=== PATIENT | female | born 1985 | race Hispanic/Latino ===

== ENCOUNTER → 2017-12-07 15:04 | Outpatient (CLI) | payer OTHER, MEDICAID, SELFPAY ==
[2017-12-07 17:22] LABS: Hematocrit 30.4 % (37-47); Hemoglobin 9.6 g/dl (12.0-15.0); Mean Corp Hgb Conc 31.6 g/gl (32-36); Mean Corpuscular Hgb 26.5 pg (27.0-32.0); Mean Platelet Vol. 10.4 fl (6.2-12.0); Platelet Count 325 K/mm3 (150-450); RBC Distribution Width CV 15.1 % (11.6-14.6); RBC Distribution Width SD 46.8 fl (35.1-43.9); Red Blood Count 3.62 M/mm3 (4.2-5.4); White Blood Count 10.7 K/mm3 (4.4-11.0)
[2017-12-07 17:23] LABS: Scan Indicated on CBC? Y/N NO
[2017-12-07 17:27] LABS: Glucose Challenge Gest 1H 50g 130 mg/dL (70-140)
== END ==
PROVIDERS: Visit Provider Obstetrics & Gynecology
DX: Z34.80 Encounter for supervision of other normal pregnancy, unspecified trimester (principal)
CPT/HCPCS: 36415; 82950; 85027

== ENCOUNTER 2017-12-17 15:20 | Emergency (ER) | payer OTHER, MEDICAID, SELFPAY ==
[2017-12-17 15:22] VITALS: BP 129/82; PULSE 94; RESP 18; TEMP 37.2; O2SAT 99; BMI 49.1
--- NOTE | 2017-12-17 16:13 | US_ITS ---
STUDY: SECOND AND THIRD TRIMESTER OBSTETRICAL ULTRASOUND - LIMITED REASON FOR EXAM: Female, 32 years old. Bleeding. . PRIOR ULTRASOUND: None. TECHNIQUE: Transabdominal ultrasound evaluation was performed. FINDINGS: There is a single intrauterine fetus. The fetus is in a transverse lie with the head on the maternal right side. There is demonstrated cardiac activity with a heart rate of 139 bpm. There is a normal amniotic fluid volume. The largest amniotic fluid pocket measures 4.9 x 2.8 cm. The placenta is anterior. There is no evidence of placental abruption. The cervix measures 3.3 cm in length. BIOMETRY: BPD: 6.0 cm: 24 weeks, 4 days HC: 24.1 cm: 26 weeks, 2 days AC: 21.3 cm: 25 weeks, 6 days FL: 4.8 cm: 26 weeks, 1 days age by current US: 25 weeks, 5 days. BRIDGER by current US: 03/27/2018. US/OB Limited With Biometrics IMPRESSION: Single live intrauterine gestation as described above. No acute pathology. Electronically Signed: Kenneth Evangelista, at 16:58 EDT Tel , Service support ,
--- NOTE | 2017-12-17 17:19 | ED.DCSUM_ITS ---
- ER Visit Summary Date of Service: 12/17/17 Chief Complaint: [Abdominal pain/injury] History of Present Illness: The patient is a 32 F [presents the emergency department after injuring her right lower abdomen. Patient states that she was at work when she was pulling and pushing a skid that had a large amount of cardboard on it. At one point patient felt a sudden onset of sharp pain to the right lower quadrant while she was pulling. Now she just complains of soreness to the right lower abdomen. Patient also states that she is 25 weeks and noticed small amount of vaginal spotting that she describes as minimal since the injury. Still feeling the baby move. Patient denies urinary symptoms. She denies recent illness. She denies any fever or vomiting.] Physical Examination: [HEENT-PERRLA, EOMI. Cranial nerves II through XII grossly intact. TMs clear. Mucous membranes moist. No adenopathy. Cardiovascular-regular rate and rhythm without murmur or ectopy Lungs-clear to auscultation, chest wall stable without crepitus or subcu emphysema Abdomen-normoactive bowel sounds, soft. Patient has tenderness to the right lower quadrant musculature. No significant tenderness over the uterus which measures about 5 cm above the umbilicus. There is no rebound, rigidity, or perineal signs. No masses palpated. No hernias. Extremities-intact ?4, normal range of motion, normal pulses, atraumatic] Test Results: [Pelvic ultrasound obtained was normal] Emergency Department Course and Treatment: [Patient case was discussed with Dr. Cass López who felt that his lungs her ultrasound looked normal patient to be discharged to home with instructions to take Tylenol.] Treatment Plan: [Patient will be discharged to home and advised use acetaminophen for discomfort. I suspect patient likely has an abdominal wall strain. Patient was given work restrictions.] Disposition: [Discharged home in stable condition.] Impression: [Abdominal wall strain] This note was generated with [employer]ven[employer] dictation software. It may contain incorrect words, spelling, and punctuation that were not noted in review of the chart prior to signing ED Disposition - Plan for ED Patient: Chief Complaint: Other, Pain/Inj Referrals: Jose Manuel Briseno DO [Primary Care Provider] -
--- NOTE | 2017-12-17 17:20 | ED.DEP ---
ED Disposition - Plan for ED Patient: Chief Complaint: Other, Pain/Inj Instructions: ED Strain Abdominal Muscle Referrals: Jose Manuel Briseno DO [Primary Care Provider] - [facility] [GROUP OF PHYSICIANS] - 3-5 Days
[2017-12-17 17:53] VITALS: PULSE 78; RESP 16; O2SAT 98
== END 2017-12-17 17:53 | disposition home or self-care (01) ==
PROVIDERS: Emergency Provider Emergency Medicine; Family Provider Family Medicine; PCP Family Medicine
DX: O9A.212 Injury, poisoning and certain other consequences of external causes complicating pregnancy, second trimester (principal); S39.011A Strain of muscle, fascia and tendon of abdomen, initial encounter; X50.9XXA Other and unspecified overexertion or strenuous movements or postures, initial encounter; Y93.9 Activity, unspecified; Y92.9 Unspecified place or not applicable; O26.852 Spotting complicating pregnancy, second trimester; Z3A.25 25 weeks gestation of pregnancy
CPT/HCPCS: 76816; 99282; A4216

== ENCOUNTER → 2018-01-03 13:14 | Outpatient (CLI) | payer OTHER, MEDICAID, SELFPAY | PROVIDERS: Family Provider Family Medicine; PCP Family Medicine; Visit Provider Physician Assistant | DX: J02.9 Acute pharyngitis, unspecified (principal) | CPT/HCPCS: 87077; 87081 ==

== ENCOUNTER → 2018-02-12 14:08 | Outpatient (CLI) | payer OTHER, MEDICAID, SELFPAY ==
[2018-02-12 14:37] LABS: ROM Internal Control Test YES-OK TO RESULT pt. (Internal QC)
[2018-02-12 14:38] LABS: ROM Patient Test POSITIVE (Negative)
== END ==
PROVIDERS: Visit Provider Obstetrics & Gynecology
DX: Z34.83 Encounter for supervision of other normal pregnancy, third trimester (principal); N39.0 Urinary tract infection, site not specified
CPT/HCPCS: 84112; 87086; 87088

== ENCOUNTER 2018-02-12 16:15 | Inpatient (IN) | payer OTHER, MEDICAID, SELFPAY ==
[2018-02-12 17:03] VITALS: BMI 52.9
--- NOTE | 2018-02-12 17:04 | US_ITS ---
STUDY: SECOND AND THIRD TRIMESTER OBSTETRICAL ULTRASOUND - LIMITED REASON FOR EXAM: Female, 32 years old. growth and amniotic fluid index premature rupture of membranes LMP: PRIOR ULTRASOUND: None. TECHNIQUE: Transabdominal ultrasound evaluation was performed. FINDINGS: There is a single intrauterine fetus. The fetus is in a cephalic presentation. There is demonstrated cardiac activity with a heart rate of 143 bpm. There is a normal amniotic fluid volume. The largest amniotic fluid pocket measures 7 cm. The amniotic fluid index (PAYAM) is 16.11 cm. The placenta is anterior and fundal There are Grade 2 placental changes. The cervix measures 3.1 cm in length. BIOMETRY: BPD: 8.4 cm: 33 weeks, 6 days HC: 30.57 cm: 34 weeks, 1 days AC: 31.26 cm: 35 weeks, 2 days FL: 5.7 cm: 30 weeks, 0 days Age by LMP: weeks, days. BRIDGER by LMP: . age by prior US: weeks, days. BRIDGER by prior US: . age by current US: 33 weeks, 3 days. BRIDGER by current US: March 30, 2018. Estimated weight: 2211 grams, +/- 323 grams, 48 percentile. US/OB Limited With Biometrics IMPRESSION: Viable intrauterine gestation approximately 33-34 weeks gestational age. weight 2211 g in 48 percentile. Normal amniotic fluid index 16.11 Electronically Signed: Josue Elizabeth MD at 18:13 EDT , Service support ,
[2018-02-12 17:34] LABS: Hematocrit 28.2 % (37-47); Hemoglobin 8.5 g/dl (12.0-15.0); Mean Corp Hgb Conc 30.1 g/gl (32-36); Mean Corpuscular Hgb 23.7 pg (27.0-32.0); Mean Corpuscular Volume 78.6 fL (81-99); Mean Platelet Vol. 10.4 fl (6.2-12.0); Platelet Count 313 K/mm3 (150-450); RBC Distribution Width CV 15.3 % (11.6-14.6); Red Blood Count 3.59 M/mm3 (4.2-5.4)
[2018-02-12 17:43] LABS: Scan Indicated on CBC? Y/N NO
[2018-02-12] MEDS: Betamethasone/Betamethasone 30 MG/5 ML Vial 12 MG IM (18:15)
[2018-02-12] MEDS: Azithromycin 250 MG Tablet 500 MG PO (19:26)
[2018-02-12] MEDS: Acetaminophen 500 MG Tablet PO (20:41)
[2018-02-12] MEDS: Docusate Sodium 100 MG Capsule PO (22:10)
[2018-02-12] MEDS: Zolpidem Tartrate 5 MG Tablet PO (22:38)
[2018-02-13] MEDS: Acetaminophen 500 MG Tablet PO (05:15)
[2018-02-13] MEDS: Betamethasone/Betamethasone 30 MG/5 ML Vial 12 MG IM (06:21)
--- NOTE | 2018-02-13 07:30 | PCM.PN.BLA ---
Progress Note LATE ENTRY OF DISCUSSION at approx 8:30 am. Discussed with patient and re 33 2/7 wk with SROM documented by amnisure test at [facility] lab. Advised that goal will be expectant management until either onset of labor, nonreassuring FHT indicating need for delivery of if s/sx of infection. Betamethasone given and to be repeated AM 02/13/18. Advised if all remains stable, may consider dischg to home to continue bedrest there until indication for delivery. Advised that IF she goes home: bedrest, and someone else must care for her toddler. Advised that if baby were to be born soon, baby would be in SCN. She may go to visit [facility] OF [facility] but not likely baby will be out to her room for some time. Advised of benefits of betamethasone for baby in reduction of respiratory issues, protection of baby's brain, and also dec in risk of NEC. Advised of reason for antibiotics given.. to prolong latency until onset of labor. All questions answered. Will continue expectant management with goal to prolong for now for baby benefit.
--- NOTE | 2018-02-13 07:36 | PN_ITS ---
Progress Note LATE ENTRY OF DISCUSSION at approx 8:30 am. Discussed with patient and re 33 2/7 wk with SROM documented by amnisure test at [facility] lab. Advised that goal will be expectant management until either onset of labor, nonreassuring FHT indicating need for delivery of if s/sx of infection. Betamethasone given and to be repeated AM 02/13/18. Advised if all remains stable, may consider dischg to home to continue bedrest there until indication for delivery. Advised that IF she goes home: bedrest, and someone else must care for her toddler. Advised that if baby were to be born soon, baby would be in SCN. She may go to visit [facility] but not likely baby will be out to her room for some time. Advised of benefits of betamethasone for baby in reduction of respiratory issues, protection of baby's brain , and also dec in risk of NEC. Advised of reason for antibiotics given.. to prolong latency until onset of labor. All questions answered. Will continue expectant management with goal to prolong for now for baby benefit.
--- NOTE | 2018-02-13 07:36 | PCM.PN.BLA ---
Progress Note PROGRESS NOTE 33 3/7 wk EGA SROM by amnisure test Feeling a little uncomfortable overnight. Cervix was rechecked and still closed. Reports she got second dose of steroids this am. AVSS CBC with normal WBC last night not rechecked today as WBCs would likely be elevated 2/2 steroids given. EFM 110-120s w/ avg variability. Accels noted. No regular UCs noted. CX: deferred. checked recently. SONO yesterday: Mata fetus, VTX. PAYAM WNL: 16.1 The placenta is anterior and fundal There are Grade 2 placental changes. The cervix measures 3.1 cm in length. EFW: 2211 grams, +/- 323 grams, 48 percentile. A/P: 33 3/7 wk SROM by amnisure. NORMAL PAYAM. SSE in office was negative for SROM. ? False positive test?? Will continue expectant management. -- Betamethasone two doses given. -- Ampicillin , Azithromycin Bedrest and observation for s/sx of infection, labor. Advised pt that we should try to avoid cervix checks unless regular UCs. or tender all over abdomen. With pressure, back discomfort unlikely to change cervix Tylenol, K pad etc for discomforts prn. May shower. Continue care.
--- NOTE | 2018-02-13 13:42 | PCM.PN.BLA ---
Progress Note PROGRESS NOTE Stable. no UCs. NST reactive earlier today. Explained to patient that test ROM plus has approx 9% false positive results. Suspect FP on ROM plus collected yesterday as all other testing to evaluate for SROM has been negative. AVSS A/P: 33 3/7 wk EGA . ? SROM. Exam at office yesterday neg pool, neg NIT, neg fern. Sono yesterday with PAYAM 16 cm. DOUBT SROM given clinical findings. REPEAT ROM plus test collected now. Advised: 1.) If this ROM plus test NEGATIVE: NO ROM likely then. And will dischg home 2.) If ROM plus test AGAIN POSITIVE: Then will treat as true SROM. PAYAM still in normal range. Will continue observation overnight tonight, with plan to dischg home tomorrow if remains stable. Continue Azithromycin 500 mg po daily and Amoxicillin 875 mg po bid for 7 d. f/u weekly in ofc for PAYAM and PNV, and NST twice weekly. Watch for s/sx of infection if truly SROM, labor.
--- NOTE | 2018-02-13 13:51 | PN_ITS ---
Progress Note PROGRESS NOTE Stable. no UCs. NST reactive earlier today. Explained to patient that test ROM plus has approx 9% false positive results. Suspect FP on ROM plus collected yesterday as all other testing to evaluate for SROM has been negative. AVSS A/P: 33 3/7 wk EGA . ? SROM. Exam at office yesterday neg pool, neg NIT, neg fern. Sono yesterday with PAYAM 16 cm. DOUBT SROM given clinical findings. REPEAT ROM plus test collected now. Advised: 1.) If this ROM plus test NEGATIVE: NO ROM likely then. And will dischg home 2.) If ROM plus test AGAIN POSITIVE: Then will treat as true SROM. PAYAM still in normal range. Will continue observation overnight tonight, with plan to dischg home tomorrow if remains stable. Continue Azithromycin 500 mg po daily and Amoxicillin 875 mg po bid for 7 d. f/u weekly in ofc for PAYAM and PNV , and NST twice weekly. Watch for s/sx of infection if truly SROM, labor.
[2018-02-13 14:14] LABS: ROM Internal Control Test YES-OK TO RESULT pt. (Internal QC); ROM Patient Test Negative (Negative)
[2018-02-13] MEDS: Ferrous Sulfate 325 MG Tablet PO (15:07)
[2018-02-13] MEDS: Docusate Sodium 100 MG Capsule PO (15:07)
[2018-02-13] MEDS: Azithromycin 250 MG Tablet 500 MG PO (15:07)
--- NOTE | 2018-02-13 16:51 | NURSING ---
Dr Andersen was in around 1300 to repeat a ROM under spect exam. Rom sent to lab and results were negative. Dr Andersen called in around 1530 and informed of negative results and pt not painfully jey at this time. Pt ok to discharge home. needs to follow up for appointment early next week, return if any sudden gush or leaking of fluids, vaginal bleeding, or contractions that are regular and painful. Pt informed of doctors orders and eager to go home. discharge instructions reviewed and given.
--- NOTE | 2018-02-26 07:56 | OB.TRI.HP_ITS ---
History of Present Illness Date of Service: 02/12/18 Was patient seen by the physician?: Yes Reason For Visit: SPPROM Date of Service: 02/12/18 Final BRIDGER: 03/31/18 Gestational age: 33 Weeks and 2 Days History of Present Illness: 32 yo female with h/o prior C section at term. presented to office earlier in day for ? SROM. CC of low back pain and some inc vaginal fluid. EXAM then: Cervix closed. SSE: NEG POOL, NEG NTZ, and neg fern. ROM plus test collected and sent. patient sent home from office then to rest. Comfort measures discussed. ROM positive test POSITIVE for ROM Patient called back re lab results and advised to go to for inpatient evaluation and management. Allergies kiwi Allergy (Verified 02/12/18 18:44) Anaphylaxis latex Allergy (Verified 02/12/18 18:44) Rash cardboard Allergy (Uncoded 02/12/18 18:44) Rash fermaldehyde Allergy (Uncoded 02/12/18 18:44) Rash - Pertinent Past Medical History Medical History: Past Medical History (Last Reviewed 01/03/18 @ 07:10 by Jessie Neil) Anemia Diarrhea Fatigue Shortness of breath Surgical History: Past Surgical History (Last Updated 01/03/18 @ 07:11 by Jessie Neil) History of [place] teeth extracted Physical Exam General: Alert, Oriented x3, Cooperative, No apparent distress HEENT: Atraumatic, EOMI Cardiovascular: Regular rate, Regular Rhythm Lungs: Clear to auscultation Abdomen: Soft, Gravid - Nontender Neurological: Cranial nerves II-XII grossly intact Estimated gestational size: Appropriate for gestational size Cervix Dilation (cm): 0 Station: -3 Effacement (%): 0 NST - FHR Rate Baby A Baseline: Category I tracing. Uterine Activity:: No regular UCs noted. Impression/Plan 33 2/7 wk EGA . ? SROM. Office exam negative for this, but ROM test positive. Advised of findings and plan. Admit for observation of labor Pelvic sono to assess EFW and PAYAM Betamethasone 12 mg IM q 12 hrs Azithromycin 500 mg po daily and Ampicillin for premature ROM to defer delivery Serial temps and CBCs. Advised if stable, will continue bedrest and close follow up until 37 wks If progression to labor: delivery by repeat C/S and plans BTO.
--- NOTE | 2018-02-26 07:56 | PCM.DC.SUM ---
Discharge Date and Diagnosis Date of Admission: 02/12/18 - Positive ROM 33 w 2 d. Date of Discharge: 02/13/18 - FALSE POSITIVE ROM Hospital Course and Treatment Consultations 02/12/18 17:05 Consult: Anesthesia Routine Comment: Reason For Exam: LABOR Summary of Care Provided: Observation of labor 33 2/7 wk Admitted for observation after ROM positive test at [facility] lab. Betamethasone given. Azithromycin and ampicillin to defer latent phase. Pelvic sono showed AGA and PAYAM of 16 cm Repeat ROM test NEGATIVE No signs of labor, EFM category I tracing. A/P: 33 2/7 wk FALSE POSITIVE ROM NOT in labor. Repeat ROM NEGATIVE PAYAM 16 cm and nothing to suggest SPROM. Home undelivered. RTO as planned for next PNV. Home Medications: Medications to take at Discharge Fluticasone Propionate [Flonase Allergy Relief] 9.9 ml NS DAILY 12/17/17 Montelukast [Singulair] 20 mg 02/12/18 Omeprazole [Prilosec] 10 mg PO DAILY 02/12/18 Primary Care Physician: Jose Manuel Briseno DO [Primary Care Provider] - Medical Necessity - Tobacco Use Smoking Status: Former smoker Meaningful Use Info Meaningful Use Diagnoses (Choose all that apply): None applicable
--- NOTE | 2018-02-26 08:01 | DS.PCM_ITS ---
Discharge Date and Diagnosis Date of Admission: 02/12/18 - Positive ROM 33 w 2 d. Date of Discharge: 02/13/18 - FALSE POSITIVE ROM Hospital Course and Treatment Consultations 02/12/18 17:05 Consult: Anesthesia Routine Comment: Reason For Exam: LABOR Summary of Care Provided: Observation of labor 33 2/7 wk Admitted for observation after ROM positive test at [facility] lab. Betamethasone given. Azithromycin and ampicillin to defer latent phase. Pelvic sono showed AGA and PAYAM of 16 cm Repeat ROM test NEGATIVE No signs of labor, EFM category I tracing. A/P: 33 2/7 wk FALSE POSITIVE ROM NOT in labor. Repeat ROM NEGATIVE PAYAM 16 cm and nothing to suggest SPROM. Home undelivered. RTO as planned for next PNV. Home Medications: Medications to take at Discharge Fluticasone Propionate [Flonase Allergy Relief] 9.9 ml NS DAILY 12/17/17 Montelukast [Singulair] 20 mg 02/12/18 Omeprazole [Prilosec] 10 mg PO DAILY 02/12/18 Primary Care Physician: Jose Manuel Briseno DO [Primary Care Provider] - Medical Necessity - Tobacco Use Smoking Status: Former smoker Meaningful Use Info Meaningful Use Diagnoses (Choose all that apply): None applicable
== END 2018-02-13 16:05 | disposition home or self-care (01) | DRG 781 ==
PROVIDERS: Admitting Provider Obstetrics & Gynecology; Family Provider Family Medicine; PCP Family Medicine; Visit Provider Obstetrics & Gynecology
DX: O26.893 Other specified pregnancy related conditions, third trimester (principal); Z03.71 Encounter for suspected problem with amniotic cavity and membrane ruled out; Z3A.33 33 weeks gestation of pregnancy
CPT/HCPCS: 59025; 59050; 76816; 84112; 85027; 86850; 86900; J7120; A4216; J0290; J0702

== ENCOUNTER 2018-03-03 20:45 | Outpatient (CLI) | payer OTHER, MEDICAID, SELFPAY ==
[2018-03-03 23:24] VITALS: BMI 56.2
[2018-03-04 00:45] VITALS: RESP 18
--- NOTE | 2018-03-07 19:19 | OB.TRI.NOTE ---
History of Present Illness Date of Service: 03/03/18 Was patient seen by the physician?: No Reason For Visit: R/O LABOR Date of Service: 03/03/18 Final BRIDGER: 03/31/18 Gestational age: 36 Weeks and 0 Days History of Present Illness: 36 week intrauterine presents with some contractions. care has been remarkable for a prior section. Allergies kiwi Allergy (Verified 03/03/18 23:29) Anaphylaxis latex Allergy (Verified 03/03/18 23:29) Rash cardboard Allergy (Uncoded 03/03/18 23:29) Rash fermaldehyde Allergy (Uncoded 03/03/18 23:29) Rash - Pertinent Past Medical History Medical History: Past Medical History (Last Reviewed 01/03/18 @ 07:10 by Jessie Neil) Anemia Diarrhea Fatigue Shortness of breath Surgical History: Past Surgical History (Last Updated 01/03/18 @ 07:11 by Jessie Neil) History of [place] teeth extracted Physical Exam Vitals: Vital Signs Resp 03/04/18 00:45 NST - FHR Rate Baby A NST Reactive:: Yes FHR Category:: Category I Impression/Plan 36 week intrauterine with transient contractions. No cervical change after monitoring. Reactive nonstress test. Released to home with routine instructions.
--- NOTE | 2018-03-07 19:22 | OB.TRI.HP_ITS ---
History of Present Illness Date of Service: 03/03/18 Was patient seen by the physician?: No Reason For Visit: R/O LABOR Date of Service: 03/03/18 Final BRIDGER: 03/31/18 Gestational age: 36 Weeks and 0 Days History of Present Illness: 36 week intrauterine presents with some contractions. care has been remarkable for a prior section. Allergies kiwi Allergy (Verified 03/03/18 23:29) Anaphylaxis latex Allergy (Verified 03/03/18 23:29) Rash cardboard Allergy (Uncoded 03/03/18 23:29) Rash fermaldehyde Allergy (Uncoded 03/03/18 23:29) Rash - Pertinent Past Medical History Medical History: Past Medical History (Last Reviewed 01/03/18 @ 07:10 by Jessie Neil) Anemia Diarrhea Fatigue Shortness of breath Surgical History: Past Surgical History (Last Updated 01/03/18 @ 07:11 by Jessie Neil) History of [place] teeth extracted Physical Exam Vitals: Vital Signs Resp 03/04/18 00:45 NST - FHR Rate Baby A NST Reactive:: Yes FHR Category:: Category I Impression/Plan 36 week intrauterine with transient contractions. No cervical change after monitoring. Reactive nonstress test. Released to home with routine instructions.
== END 2018-03-04 00:45 | disposition home or self-care (01) ==
LOC: WPOUT 23:19 → WP 23:19
PROVIDERS: Family Provider Family Medicine; PCP Family Medicine; Visit Provider Obstetrics & Gynecology
DX: O60.03 Preterm labor without delivery, third trimester (principal); Z3A.36 36 weeks gestation of pregnancy
CPT/HCPCS: 59025; 59050; 99218; G0378

== ENCOUNTER 2018-03-17 03:35 | Inpatient (IN) | payer OTHER, MEDICAID, SELFPAY ==
[2018-03-17] VITALS (34 sets, daily range): BP systolic 102–140; BP diastolic 44–85; PULSE 77–128; RESP 15–18; TEMP 36.2–37.3; O2SAT 92–100; BMI 55.5
--- NOTE | 2018-03-17 | FALS_PTH ---
PATIENT: LEOPOLDODECEMBER KAYLA LOC: [facility] U#:[id number] AGE/SX: 32/F ROOM: WP009 RE03/17/[address]: Dr. Jessie Andersen MD : 1985 BED: 1 DIS: 03/20/2018 SPEC #: [id number] RECD: 03/17/18 10:11 STATUS: TING KUMAR #: [id number] DARWIN: 03/17/18 00:[address]: Jessie Andersen DEPT: SURGICAL PATHOLOGY RECD BY: Osmel [place] ENTERED: 03/18/18 12:29 SP TYPE: FALL TUBES OTHR DR: Dr. Jose Manuel Briseno, DO Tissues: Fallopian tube Procedures: Surgery Specimen Level II HEADER OPERATION: Tubal ligation PRE-OP DIAGNOSIS: Desires sterilization TISSUE SUBMITTED: Fallopian tubes, stitch in left tube MICROSCOPIC DIAGNOSIS Right and left fallopian tubes, bilateral partial salpingectomies: Two complete segments of fallopian tubes with no pathologic change. AM:clarke 03/19/18 MICROSCOPIC DESCRIPTION Slides are reviewed. GROSS DESCRIPTION Received is one container labeled with the patient's name and designated left tube with stitch. The specimen consists of two tubular pieces of cantu soft tissue with the left tube identified by a stitch. The right tube measures 1 cm in length and 0.7 cm in diameter. The left tube with the stitch measures 1.5 cm in length and 0.6 cm in diameter. The left tube is inked black. The entire specimen is submitted in one cassette. Both pieces will be sectioned at the time of embedding. / PRANAV:clarke 03/18/18 TC:4 CPT: 98442 x2
[2018-03-17 03:33] LABS: ROM Internal Control Test YES-OK TO RESULT pt. (Internal QC)
[2018-03-17 03:34] LABS: ROM Patient Test POSITIVE (Negative)
[2018-03-17 04:10] LABS: Absolute Lymphocyte Count 2.07 X10^3/ul (0.83-4.51); Absolute Neutrophil Count 8.3 X10^3/uL (2.0-7.7); Basophil# 0.02 X10^3/uL; Basophil% 0.2 % (0-1); Differential Indicated SCAN CRITERIA MET; Eosinophil# 0.09 X10^3/uL; Eosinophils% 0.8 % (0-5); Hematocrit 29.6 % (37-47); Hemoglobin 8.7 g/dl (12.0-15.0); Lymphocyte # 2.07 X10^3/ul (4.0); Lymphocyte % 18.4 % (19-41); Mean Corp Hgb Conc 29.4 g/gl (32-36); Mean Corpuscular Hgb 21.9 pg (27.0-32.0); Mean Corpuscular Volume 74.4 fL (81-99); Mean Platelet Vol. 10.5 fl (6.2-12.0); Monocyte# 0.71 X10^3/uL; Monocyte% 6.3 % (0-10); Neutrophil # 8.28 X10^3/uL (2.7-7.7); Neutrophil % 73.5 % (47-70); POSITIVE COUNT NO; POSITIVE DIFFERENTIAL NO; POSITIVE MORPHOLOGY YES; Platelet Count 308 K/mm3 (150-450); RBC Distribution Width CV 16.8 % (11.6-14.6); RBC Distribution Width SD 46.2 fl (35.1-43.9); Red Blood Count 3.98 M/mm3 (4.2-5.4); White Blood Count 11.3 K/mm3 (4.4-11.0)
[2018-03-17 04:17] LABS: International Normalized Ratio 0.9; Prothrombin Time (Protime)PT. 12.5 SECONDS (11.7-14.9)
--- NOTE | 2018-03-17 04:17 | PCM.DCCSEC ---
Discharge Diet: No Restrictions Discharge Activity: May not drive while taking narcotic pain medications., May Shower, May Take a Tub Bath Return to work on:: 05/13/18 May resume sexual activity in: 4-6 weeks Lifting Restrictions: 20 pounds Additional Activity Instructions:: Nothing in the vagina for 4-6 weeks. You may return to work/school in 6-8 weeks. Change Dressing in (Days):: 4 Remove Dressing in (days):: 4 Cleanse incision/area with: Soap & Water, Keep Dressing Clean & Dry Additional Instructions: If you experience any of the following, contact your healthcare provider. Bleeding that soaks a pad every hour for 2 hours Fever 100.4 or higher Unrelieved incision or abdominal pain Swelling, redness, discharge or bleeding from your incision Problems urinating (including inability to urinate or burning while urinating). Visual changes Severe headache Flu-like symptoms Pain or redness in one of both of your breasts Pain, warmth, tenderness or swelling in your legs, especially the calf area Frequent nausea and vomiting Symptoms of depression or anxiety If you experience any of the following, call 911 or go to the nearest Emergency Room. Chest pain Problems breathing Seizure activity Partial or complete paralysis of a body part, slurred speech, weakness or drooping of the face, or a sudden inability to walk or hold your balance Allergies/Adverse Reactions: Allergies kiwi Allergy (Verified 03/17/18 03:07) Anaphylaxis latex Allergy (Verified 03/17/18 03:07) Rash cardboard Allergy (Uncoded 03/17/18 03:07) Rash fermaldehyde Allergy (Uncoded 03/17/18 03:07) Rash Medications to take at Discharge Acetaminophen [Tylenol Extra Strength] 1,000 mg PO Q8H PRN 03/03/18 Vits [Prenatabs FA ] 1 tablet PO DAILY 03/03/18 Docusate Sodium [Colace] 100 mg PO BID PRN PRN #30 cap 03/17/18 Ferrous Gluconate 325 mg PO BIDCM #60 tab 03/17/18 Naproxen [Naprosyn] 250 - 500 mg PO TID PRN PRN #30 tab 03/17/18 Oxycodone [Oxyir] 5 - 10 mg PO Q6H PRN PRN 7 Days #28 tablet 03/17/18 Polyethylene Glycol 3350 [Miralax] 17 gm PO DAILY PRN #20 packet 03/17/18 The following prescriptions were given: Oxycodone [Oxyir] 5 - 10 mg PO Q6H PRN PRN 7 Days #28 tablet PRN Reason: Mod-Severe Pain (-06/12) Docusate Sodium [Colace] 100 mg PO BID PRN PRN #30 cap PRN Reason: Constipation Naproxen [Naprosyn] 250 - 500 mg PO TID PRN PRN #30 tab PRN Reason: Mild-Mod Pain (1-01/10) Polyethylene Glycol 3350 [Miralax] 17 gm PO DAILY PRN #20 packet PRN Reason: Constipation Ferrous Gluconate 325 mg PO BIDCM #60 tab Follow-Up: Call to make an appointment with your doctor for an incision check in 1-2 weeks. You will also need a 6 week post- follow up appointment. Test results from this visit will be discussed in further detail at your follow-up appointment, if applicable. Please Follow Up With: Jessie Andersen MD - [phone] When: Call to make an appointment for an incision check in 2 weeks. Primary Care Physician: Jose Manuel Briseno DO [Primary Care Provider] - Proposed Discharge Date: 03/20/18
[2018-03-17 04:18] LABS: Partial Thromboplast Time 25.8 Seconds (24.1-36.2)
--- NOTE | 2018-03-17 04:24 | DCINST_ITS ---
Discharge Diet: No Restrictions Discharge Activity: May not drive while taking narcotic pain medications., May Shower, May Take a Tub Bath Return to work on:: 05/13/18 May resume sexual activity in: 4-6 weeks Lifting Restrictions: 20 pounds Additional Activity Instructions:: Nothing in the vagina for 4-6 weeks. You may return to work/school in 6-8 weeks. Change Dressing in (Days):: 4 Remove Dressing in (days):: 4 Cleanse incision/area with: Soap & Water, Keep Dressing Clean & Dry Additional Instructions: If you experience any of the following, contact your healthcare provider. * Bleeding that soaks a pad every hour for 2 hours * Fever 100.4 or higher * Unrelieved incision or abdominal pain * Swelling, redness, discharge or bleeding from your incision * Problems urinating (including inability to urinate or burning while urinating) . * Visual changes * Severe headache * Flu-like symptoms * Pain or redness in one of both of your breasts * Pain, warmth, tenderness or swelling in your legs, especially the calf area * Frequent nausea and vomiting * Symptoms of depression or anxiety If you experience any of the following, call 911 or go to the nearest Emergency Room. * Chest pain * Problems breathing * Seizure activity * Partial or complete paralysis of a body part, slurred speech, weakness or drooping of the face, or a sudden inability to walk or hold your balance Allergies/Adverse Reactions: Allergies kiwi Allergy (Verified 03/17/18 03:07) Anaphylaxis latex Allergy (Verified 03/17/18 03:07) Rash cardboard Allergy (Uncoded 03/17/18 03:07) Rash fermaldehyde Allergy (Uncoded 03/17/18 03:07) Rash Medications to take at Discharge Acetaminophen [Tylenol Extra Strength] 1,000 mg PO Q8H PRN 03/03/18 Vits [Prenatabs FA ] 1 tablet PO DAILY 03/03/18 Docusate Sodium [Colace] 100 mg PO BID PRN PRN #30 cap 03/17/18 Ferrous Gluconate 325 mg PO BIDCM #60 tab 03/17/18 Naproxen [Naprosyn] 250 - 500 mg PO TID PRN PRN #30 tab 03/17/18 Oxycodone [Oxyir] 5 - 10 mg PO Q6H PRN PRN 7 Days #28 tablet 03/17/18 Polyethylene Glycol 3350 [Miralax] 17 gm PO DAILY PRN #20 packet 03/17/18 The following prescriptions were given: Oxycodone [Oxyir] 5 - 10 mg PO Q6H PRN PRN 7 Days #28 tablet PRN Reason: Mod-Severe Pain (4-06/12) Docusate Sodium [Colace] 100 mg PO BID PRN PRN #30 cap PRN Reason: Constipation Naproxen [Naprosyn] 250 - 500 mg PO TID PRN PRN #30 tab PRN Reason: Mild-Mod Pain (1-01/10) Polyethylene Glycol 3350 [Miralax] 17 gm PO DAILY PRN #20 packet PRN Reason: Constipation Ferrous Gluconate 325 mg PO BIDCM #60 tab Follow-Up: Call to make an appointment with your doctor for an incision check in 1-2 weeks. You will also need a 6 week post- follow up appointment. Test results from this visit will be discussed in further detail at your follow- up appointment, if applicable. Please Follow Up With: Jessie Andersen MD - [phone] When: Call to make an appointment for an incision check in 2 weeks. Primary Care Physician: Jose Manuel Briseno DO [Primary Care Provider] - Proposed Discharge Date: 03/20/18
[2018-03-17 04:29] LABS: AST(SGOT) 14 U/L (15-37); Alanine Aminotransfer ALT/SGPT 10 U/L (13-56); EST Glomerular Filtration Rate 122 mL/min (>60); Est Glom Filt Rate - Afr Amer 148 mL/min (>60); Estimated Creatinine Clearance 265.07 ml/min; Uric Acid 3.8 mg/dL (2.6-6.0)
[2018-03-17] MEDS: Sodium Citrate/Citric Acid 30 ML UDC PO (04:29)
[2018-03-17] MEDS: Lactated Ringers 1,000 ML 999 ML IV (04:31)
[2018-03-17] MEDS: Cefazolin 2 GM in 0.9% Normal Saline 100 ML IV (04:50)
[2018-03-17] MEDS: Oxytocin 30 units/NS 500 ml 30 UNITS/500 ML IV.SOLN 167 UNITS IV (05:04)
[2018-03-17 05:17] LABS: Differential Comment SCANNED; Hypochromasia 2+; Microcytosis 2+; Polychromasia RARE
--- NOTE | 2018-03-17 05:52 | OP.PCM_ITS ---
Operative Report Date of Procedure: 03/17/18 PROCEDURE: Repeat C section. Bilateral partial salpingectomy Preoperative diagnosis: 38 wk EGA SROM Prior C section, plans repeat Sterilization request Preoperative, iron deficiency anemia Postop diagnosis: 38 wk EGA SROM Prior C section, plans repeat Sterilization request Iron deficiency anemia Anesthesia: Spinal Jessica Vicente MD Surgeon: Jessie Andersen MD Human Services Case Manager: JOSELIN Flores EBL 800 cc Complications: none Drains: Gross draining clear yellow Fluids: replacement LR Findings: At amniotomy, copious meconium stained fluid was noted. Mata viable female in vertex presentation. Apgars 8/9, Baby weight 8# 13 oz. There were normal appearing fallopian tubes and ovaries bilaterally, and a normal appearing uterus PATH: bilateral tubal segments and cord gases to Pathology lab Narrative account: After the risks, benefits and alternatives of the procedure were reviewed with the patient, informed consent was obtained. The patient was taken to the Operating room with an IV running, and placed in a seated position on the operating table for placement of the spinal. Once the spinal had been administered, she was briefly frog-legged for Gross catheter placement, and then repositioned to dorsal supine position with leftward displacement of the uterus. Retraction straps were placed on the abdomen to expose the prior incision. She was prepped and draped in the usual sterile fashion. Once the spinal was deemed adequate, a Pfannenstiel skin incision was created using the knife. The incision was carried down to the rectus fascia using the knife. The fascia was nicked in the midline. The fascial incision was extended bilaterally using curved Mcconnell scissors. The superior aspect of the fascial incision was grasped with Michael clamps and tented up and the underlying rectus abdominal muscles were dissected free. In a similar manner, the inferior aspect of the facial incision was grasped with Michael clamps tented up and the underlying rectus abdominal muscles were dissected free. The rectus abdominis muscles were in the midline and the peritoneum was identified and entered by blunt dissection high in the incision. Using the drilling machine operator's fingertips to guide dissection and Metzenbaum scissors the peritoneal incision was extended superiorly and then inferiorly The peritoneum was stretched laterally and a bladder blade was inserted. The uterine incision was then created using Metzenbaum scissors. The operators fingertips were used to extend the uterine incision by blunt dissection in a caudad- cephalad orientation . Meconium stained fluid was noted at amniotomy. With a kiwi vacuum, the vertex was then delivered atraumatically through the incision. And the baby was then delivered easily onto the abdomen. The OP and nares were bulb suctioned on the abdomen. The cord was clamped x two and cut. And the was handed off to the nurse awaiting delivery after briefly showing her to her mother and father. The baby had a spontaneous, vigorous cry. The umbilical cord was doubly clamped. The placenta was then delivered. The uterus was exteriorized and cleared of clots and debris . The uterine incision was repaired with 1 Vicryl in a running locked fashion. A second imbricating layer was then placed, using 1 Monocryl in running nonlocked fashion. Several horizontal mattress stitches of 1 Vicryl were placed along the incision for hemostasis. The R fallopian tube was grasped with a Jillian clamp at a relatively avascular midportion. A window was created in the mesosalpinx with Bovie cautery and the proximal and distal ends of the fallopian tube at this window were tied off. A knuckle of the fallopian tube was tented up and another free tie was placed inferior to the other ties. The segment of the fallopian tube was excised and set aside for pathology review. Bovie cautery was used to cauterize the tubal stumps. The L fallopian tube partial salpingectomy was then performed in a similar manner. At this point the uterus was returned to the abdominal cavity. The gutters were cleared of clots and debris and the incision at the uterus was inspected. Adequate hemostasis was noted. The peritoneal edges and rectus abdominis muscles were reapproximated in the midline with vertical mattress stitches and figure of eight stitches of 1 Vicryl . Excellent hemostasis was noted at the subfascial space. The fascia was then closed in a running nonlocked fashion with a Stratofix suture. The Subcutaneous fatty tissue was Bovie cauterized as needed for hemostasis. Sreekanth was liberally dusted at this layer to prevent seroma formation. This layer was then reapproximated with a single layer of running 3-0 Vicryl to eliminate space. The skin edges were closed in a Subcuticular stitch of 4- 0 Monocryl. The incision was cleansed. Cavilon, Steristrips, and a silver Mepilex dressing were then applied. The patient was then transferred to the recovery room bed in stable condition after tolerating the procedure well. Sponge, lap, needle and instrument counts correct times two. Medications given preop and intraoperatively included: Ancef 2 gm given construction administrative assistant to the operating room. The patient also received Pitocin given IV after cord clamp, and Toradol 30 mg IV times one. For a complete listing of medications given preop and intraoperatively, please see the anesthesia record.
[2018-03-17] MEDS: Methylergonovine 0.2 MG/ML Ampul IM (06:15)
[2018-03-17] MEDS: Lactated Ringers 1,000 ML 100 ML IV ×2 (06:34→09:11)
--- NOTE | 2018-03-17 07:43 | PCM.PN.BLA ---
Progress Note ADDENDUM: , postoperative hemorrhage Called by nurse d/t increased vaginal bleeding after C/S delivery. large clots extruded by fundal massage and on chux. Pt appears pale, sedated (got phenergan in OR and very tired after that in OR as well). IV bolus ordered. CBC, PT, PTT, INR ordered Typed and crossed two units. Starting hgb 8.7 g/dl. Iron deficiency anemia EXAM: fundus firm and NT at umbilicus. Bimanual exam with clots palpable at lower uterine segment. Banjo curettage performed and additional clots removed. Cytotec 1000 mcg MD placed Uterine tamponade balloon inserted through cervix with aide of stylette and Banjo curette. Balloon inflated with 160 cc saline Bleeding very minimal and WNL after above interventions. Total wt give EBL of approx 2000+ cc (2500 with OR EBL of 800) Will continue close observation. 2 units pRBCs ordered for initial transfusion. RECHECKED THEN 20-30 min later: Minimal to no vaginal bleeding noted
--- NOTE | 2018-03-17 07:49 | PN_ITS ---
Progress Note ADDENDUM: , postoperative hemorrhage Called by nurse d/t increased vaginal bleeding after C/S delivery. large clots extruded by fundal massage and on chux. Pt appears pale, sedated (got phenergan in OR and very tired after that in OR as well). IV bolus ordered. CBC, PT, PTT, INR ordered Typed and crossed two units. Starting hgb 8.7 g/dl. Iron deficiency anemia EXAM: fundus firm and NT at umbilicus. Bimanual exam with clots palpable at lower uterine segment. Banjo curettage performed and additional clots removed. Cytotec 1000 mcg [place] placed Uterine tamponade balloon inserted through cervix with aide of stylette and Banjo curette. Balloon inflated with 160 cc saline Bleeding very minimal and WNL after above interventions. Total wt give EBL of approx 2000+ cc (2500 with OR EBL of 800) Will continue close observation. 2 units pRBCs ordered for initial transfusion. RECHECKED THEN 20-30 min later: Minimal to no vaginal bleeding noted
--- NOTE | 2018-03-17 08:04 | NURSING ---
0615- Patient drowsy and mumbling at times. Oriented to person and place. Currently in recovery after repeat C/S. Uterus firm 1 above U but medium size clot noted on pad. Pad changed and Methergine 0.25mg IM given per orders.
--- NOTE | 2018-03-17 08:06 | NURSING ---
0630- Patient continues to pass large size clots at this time. Dr. Andersen notified via phone and in route to room. Charge nurse notified and at bedside with this nurse. PPH cart obtained. Patient's skin color pale and patient difficult to keep eyes open at times. Vital signs starting to change such as heart rate going from 100's up to 120's. Patient's pulse ox decreasing to 91%. O2 via nasal cannula placed on patient at this time. IV fluid bolus started and additional IV placed right AC and blood levels drawn.
--- NOTE | 2018-03-17 08:20 | NURSING ---
[id number] Dr. Andersen at bedside. Bedside US conducted. See charting on Hemorrhage Checklist. Cytotec 100omcg DE placed by Dr. Andersen. Intrauterine Tamponade placed with 160 cc fluid placed. 2 units of blood ordered for patient at this time.
--- NOTE | 2018-03-17 08:47 | NURSING ---
infusion rate increased to 200cc/hr at 0745
--- NOTE | 2018-03-17 08:57 | NURSING ---
at 0830, charge nurse Flaca rn informed of VS trend, ffu+1, small rubra, balloon tamponade remains in place. #1 PRBC infusing. Agreed with this hospice/home health aide. Will continue to monitor closely.
[2018-03-17 10:11] LABS: Pathology Specimen OB SEE PATHOLOGY REPORT
[2018-03-17 11:12] LABS: Absolute Lymphocyte Count 2.14 X10^3/ul (0.83-4.51); Absolute Neutrophil Count 15.5 X10^3/uL (2.0-7.7); Basophil# 0.03 X10^3/uL; Basophil% 0.2 % (0-1); Eosinophil# 0.05 X10^3/uL; Eosinophils% 0.3 % (0-5); Hematocrit 24.6 % (37-47); Hemoglobin 7.4 g/dl (12.0-15.0); Lymphocyte # 2.14 X10^3/ul (4.0); Lymphocyte % 11.8 % (19-41); Mean Corp Hgb Conc 30.1 g/gl (32-36); Mean Corpuscular Hgb 22.6 pg (27.0-32.0); Mean Corpuscular Volume 75.2 fL (81-99); Mean Platelet Vol. 10.4 fl (6.2-12.0); Monocyte# 0.42 X10^3/uL; Monocyte% 2.3 % (0-10); Neutrophil # 15.47 X10^3/uL (2.7-7.7); Platelet Count 262 K/mm3 (150-450); RBC Distribution Width SD 46.8 fl (35.1-43.9); Red Blood Count 3.27 M/mm3 (4.2-5.4); White Blood Count 18.2 K/mm3 (4.4-11.0)
[2018-03-17 11:13] LABS: POSITIVE COUNT NO; POSITIVE DIFFERENTIAL NO; POSITIVE MORPHOLOGY NO
[2018-03-17 11:18] LABS: Fibrinogen 506 mg/dl (203-444); Partial Thromboplast Time 26.2 Seconds (24.1-36.2); Prothrombin Time (Protime)PT. 13.5 SECONDS (11.7-14.9)
[2018-03-17] MEDS: Pantoprazole Sodium 20 MG Tablet PO (11:32)
[2018-03-17] MEDS: 0.9% Saline Lock 10 ML Syringe IV ×2 (11:42→12:02)
[2018-03-17] MEDS: Ketorolac 30 MG/ML Syringe IV (12:02)
[2018-03-17] MEDS: Lactated Ringers 500 ML 999 ML IV (17:33)
[2018-03-17] MEDS: Acetaminophen 500 MG Tablet 1000 MG PO (17:39)
[2018-03-17 18:17] LABS: Hematocrit 25.7 % (37-47); Hemoglobin 8.1 g/dl (12.0-15.0); Mean Corp Hgb Conc 31.5 g/gl (32-36); Mean Corpuscular Hgb 24.1 pg (27.0-32.0); Mean Corpuscular Volume 76.5 fL (81-99); Mean Platelet Vol. 10.4 fl (6.2-12.0); Platelet Count 263 K/mm3 (150-450); RBC Distribution Width CV 17.5 % (11.6-14.6); RBC Distribution Width SD 49.1 fl (35.1-43.9); Red Blood Count 3.36 M/mm3 (4.2-5.4); White Blood Count 20.1 K/mm3 (4.4-11.0)
[2018-03-17 18:18] LABS: Scan Indicated on CBC? Y/N NO
--- NOTE | 2018-03-17 18:22 | PCM.PN.BLA ---
Progress Note ADDENDUM: Day of delivery, repeat C/S and BPS Minimal bleeding. Low urine output, but s/p two units pRBCs. AVSS Pulse 90-100s GEN pale appearing, NAD Fundus firm tender c/w postop status at umbilicus Perineum: minimal bleeding, scant. Minimal blood in uterine tamponade balloon cath bag. (not emptied since placement) Uterine tamponade balloon removed after balloon deflated. No inc bleeding noted., no clot adherent to balloon A/P: postop day #0 repeat C/S and BPS. LGA fetus. Complicated by postoperative hemorrhage d/t uterine atony, clots accumulated within uterus. S/P pitocin, methergine. cytotec 1000 mcg [place]. Beside Yinka mendoza earlier today. STABLE at present. Iron deficiency anemic complicated by acute blood loss anemia 2/2 uterine atony, postoperative hemorrhage. VSS -- ferrous gluconate trial (didn't tolerate iron in pregnancy_ -- repeat CBC now and in AM Continue routine care.
--- NOTE | 2018-03-17 18:27 | PN_ITS ---
Progress Note ADDENDUM: Day of delivery, repeat C/S and BPS Minimal bleeding. Low urine output, but s/p two units pRBCs. AVSS Pulse 90-100s GEN pale appearing, NAD Fundus firm tender c/w postop status at umbilicus Perineum: minimal bleeding, scant. Minimal blood in uterine tamponade balloon cath bag. (not emptied since placement) Uterine tamponade balloon removed after balloon deflated. No inc bleeding noted., no clot adherent to balloon A/P: postop day #0 repeat C/S and BPS. LGA fetus. Complicated by postoperative hemorrhage d/t uterine atony, clots accumulated within uterus. S /P pitocin, methergine. cytotec 1000 mcg [place]. Beside Yinka mendoza earlier today. STABLE at present. Iron deficiency anemic complicated by acute blood loss anemia 2/2 uterine atony , postoperative hemorrhage. VSS -- ferrous gluconate trial (didn't tolerate iron in pregnancy_ -- repeat CBC now and in AM Continue routine care.
[2018-03-17 19:20] LABS: Color, Urine Amber (Yellow); Glucose, Dipstick Normal (Normal); Ketone-Dipstick 5 mg/dl (Negative); Leukocyte Esterase-Dipstick 100 /ul (Negative); Nitrite-Dipstick Negative (Negative); Occult Blood-Urine 250 /ul (Negative); Protein-Dipstick 100 mg/dl (Negative); Specific Gravity, Urine 1.025 (1.002-1.030); Urine Bilirubin Dipstick Negative (Negative); Urine Clarity Sl. Cloudy (Clear); Urine Urobilinogen Normal (Normal)
[2018-03-17 19:31] LABS: Red Blood Cells-Urine 50-100 SEEN /hpf (0-5); Squamous Epithelial Cells - UA 0-5 SEEN /hpf (5-10); White Blood Cells 5-10 SEEN /hpf (0-5)
[2018-03-17 19:32] LABS: Bacteria RARE /hpf (None Seen)
[2018-03-17 19:34] LABS: Mucous, Urine RARE /hpf (<or=2+)
[2018-03-17] MEDS: Lactated Ringers 1,000 ML 200 ML IV (23:49)
[2018-03-18] VITALS (7 sets, daily range): BP systolic 97–120; BP diastolic 52–75; PULSE 80–98; RESP 16–18; TEMP 36.2–36.6; O2SAT 96–98
[2018-03-18] MEDS: Acetaminophen 500 MG Tablet 1000 MG PO (01:52)
[2018-03-18 05:10] LABS: Hematocrit 22.1 % (37-47); Mean Corp Hgb Conc 31.7 g/gl (32-36); Mean Corpuscular Hgb 24.8 pg (27.0-32.0); Mean Corpuscular Volume 78.4 fL (81-99); Mean Platelet Vol. 10.7 fl (6.2-12.0); Platelet Count 232 K/mm3 (150-450); RBC Distribution Width CV 17.6 % (11.6-14.6); RBC Distribution Width SD 46.9 fl (35.1-43.9); Red Blood Count 2.82 M/mm3 (4.2-5.4); White Blood Count 14.7 K/mm3 (4.4-11.0)
[2018-03-18 05:19] LABS: Scan Indicated on CBC? Y/N NO
[2018-03-18] MEDS: Ketorolac 30 MG/ML Syringe IV ×3 (05:45→17:52)
--- NOTE | 2018-03-18 07:54 | PN.OBGYN_ITS ---
Subjective: POD#1 repeat C/S and BPS. Complicated by hemorrhage, uterine atony. Preexisting iron deficiency anemia Doing well. Just got baby on breast and states that this has been difficult. Able to stand at bedside and reports feeling well No concerns voiced, except for pain increasing now. (nursing) - Physical Exam General: Alert, Oriented x3, Cooperative, No apparent distress HEENT: Atraumatic Neck: Supple Abdomen: Soft - Fundus firm NT at umbilicus Skin: Incision - Mepilex dressing CDI Neurological: Cranial nerves II-XII grossly intact Psych/Mental Status: Normal Affect Vital Signs Temp Pulse Resp BP Pulse Ox 97.5 F L 90 18 112/56 L 98 03/18/18 04:24 03/18/18 05:30 03/18/18 05:30 03/18/18 04:24 03/18/18 05:30 Oxygen Flow Rate (L/min) 5 Oxygen Delivery Method Room Air Weight: 124.738 kg Body Mass Index (BMI) 55.5 Intake and Output for Last 24 Hours 03/16/18 03/17/18 03/18/18 23:59 23:59 23:59 Intake Total 6605 / 6605 1758 / 1758 Output Total 880 / 880 1150 / 1150 Balance 5725 / 5725 608 / 608 Laboratory Tests Past 24 Hrs 03/17/18 03/17/18 03/17/18 03:50 07:30 07:30 WBC 18.2 H RBC 3.27 L Hgb 7.4 L Hct 24.6 L MCV 75.2 L MCH 22.6 L MCHC 30.1 L RDW 17.0 H RDW Differential 46.8 H Plt Count 262 MPV 10.4 Immature Gran % (Auto) 0.400 Neut % (Auto) 85.0 H Lymph % (Auto) 11.8 L [place] % (Auto) 2.3 Eos % (Auto) 0.3 Baso % (Auto) 0.2 Absolute Neuts (auto) 15.5 H Absolute Lymphs (auto) 2.14 Total Counted Not Reportable PT 13.5 INR 1.0 APTT 26.2 Fibrinogen 506 H Urine Color Urine Clarity Urine pH Ur Specific [place] Urine Protein Urine Glucose (UA) Urine Ketones Urine Occult Blood Urine Nitrite Urine Bilirubin Urine Urobilinogen Ur Leukocyte Esterase Urine RBC Urine WBC Ur Squamous Epith Cells Urine Bacteria Urine Mucus Crossmatch See Detail 03/17/18 03/17/18 03/18/18 18:08 19:00 04:55 WBC 20.1 H 14.7 H RBC 3.36 L 2.82 L Hgb 8.1 L 7.0 L Hct 25.7 L 22.1 L MCV 76.5 L 78.4 L MCH 24.1 L 24.8 L MCHC 31.5 L 31.7 L RDW 17.5 H 17.6 H RDW Differential 49.1 H 46.9 H Plt Count 263 232 MPV 10.4 10.7 Immature Gran % (Auto) Neut % (Auto) Lymph % (Auto) [place] % (Auto) Eos % (Auto) Baso % (Auto) Absolute Neuts (auto) Absolute Lymphs (auto) Total Counted PT INR APTT Fibrinogen Urine Color Shruthi Urine Clarity Sl. Cloudy Urine pH 5.0 Ur Specific [place] 1.025 Urine Protein 100 H Urine Glucose (UA) Normal Urine Ketones 5 H Urine Occult Blood 250 H Urine Nitrite Negative Urine Bilirubin Negative Urine Urobilinogen Normal Ur Leukocyte Esterase 100 H Urine RBC 50-100 SEEN Urine WBC 5-10 SEEN Ur Squamous Epith Cells 0-5 SEEN Urine Bacteria RARE Urine Mucus RARE Crossmatch Medical Necessity - Tobacco Use Smoking Status: Never smoker Assessment/Plan All Active Problems (Last Reviewed 01/03/18 @ 07:10 by Jessie Neil) Gastroenteritis (Acute) Pharyngitis (Acute) URI (upper respiratory infection) (Acute) POD#1 Repeat C/S and BPS Complicated by iron deficiency anemia and hemorrhage due to atony. Received two units pRBCs. AVSS WBCs normalizing Repeat CBC at 1200 to confirm stability. If stable, iron BID. If further drift will assess clinically prior to decision to give additional blood Inc diet and activity as tolerated. IVs to saline lock. Gross removed for voiding trial. Begin po meds. IV toradol to continue today. Continue routine care
[2018-03-18] MEDS: oxyCODONE 5 MG Tablet PO ×4 (08:23→20:43)
[2018-03-18] MEDS: Senna/Docusate Sodium 1 Tablet PO (08:24)
[2018-03-18] MEDS: Prenatal Vits Tablet 1 TABLET PO (10:07)
[2018-03-18] MEDS: Pantoprazole Sodium 20 MG Tablet PO (10:08)
[2018-03-18] MEDS: 0.9% Saline Lock 10 ML Syringe IV ×2 (11:37→22:29)
[2018-03-18 12:02] LABS: Absolute Neutrophil Count 10.1 X10^3/uL (2.0-7.7); Basophil# 0.03 X10^3/uL; Basophil% 0.2 % (0-1); Eosinophil# 0.08 X10^3/uL; Eosinophils% 0.6 % (0-5); Hemoglobin 7.2 g/dl (12.0-15.0); Lymphocyte % 17.8 % (19-41); Mean Corp Hgb Conc 31.3 g/gl (32-36); Mean Corpuscular Hgb 24.6 pg (27.0-32.0); Mean Corpuscular Volume 78.5 fL (81-99); Mean Platelet Vol. 9.9 fl (6.2-12.0); Monocyte# 1.26 X10^3/uL; Monocyte% 8.9 % (0-10); Neutrophil # 10.09 X10^3/uL (2.7-7.7); Neutrophil % 71.6 % (47-70); Platelet Count 263 K/mm3 (150-450); RBC Distribution Width CV 17.8 % (11.6-14.6); RBC Distribution Width SD 48.3 fl (35.1-43.9); Red Blood Count 2.93 M/mm3 (4.2-5.4); White Blood Count 14.1 K/mm3 (4.4-11.0)
[2018-03-18 12:03] LABS: POSITIVE COUNT NO; POSITIVE DIFFERENTIAL NO; POSITIVE MORPHOLOGY NO
--- NOTE | 2018-03-18 12:42 | NURSING ---
Reported to Maritza CAMPBELL patient's CBC results, vital signs, and absence of symptoms when up. Maritza will report to Dr. Andersen and report back with new orders if appropriate.
--- NOTE | 2018-03-18 13:04 | NURSING ---
Dr. Andersen called. Aware of CBC results, urinary output, and vital signs. She states she plans to order ferrous gluconate at this time.
[2018-03-18] MEDS: Ferrous Gluconate 325 MG Tablet PO (17:51)
[2018-03-18] MEDS: Ondansetron 4 MG/2 ML Vial IV (22:26)
[2018-03-19] MEDS: Ketorolac 30 MG/ML Syringe IV ×2 (00:20→06:18)
[2018-03-19 01:45] VITALS: BP 100/63; PULSE 70; RESP 16; TEMP 36.7
[2018-03-19] MEDS: oxyCODONE 5 MG Tablet PO ×5 (03:35→22:14)
[2018-03-19] MEDS: Prenatal Vits Tablet 1 TABLET PO (07:57)
[2018-03-19] MEDS: Senna/Docusate Sodium 1 Tablet PO (07:57)
[2018-03-19 08:00] VITALS: BP 120/57; PULSE 83; RESP 16; TEMP 36.3
[2018-03-19] MEDS: Pantoprazole Sodium 20 MG Tablet PO (09:49)
--- NOTE | 2018-03-19 09:59 | PN.OBGYN_ITS ---
Subjective: POD#2 Doing well. Denies feeling weak with walking and tolerating all activity ok so far. Not able to take ferrous gluconate as upset stomach with this. Plans to resume iron rich foods. - Physical Exam General: Alert, Oriented x3 HEENT: Atraumatic Abdomen: Soft, Obese - fundus firm and tender c/w postop at approx umbilicus Skin: Incision - Mepilex dressing intact. appears dry. Neurological: Cranial nerves II-XII grossly intact Psych/Mental Status: Normal Affect Vital Signs Temp Pulse Resp BP Pulse Ox 97.3 F L 83 16 120/57 L 97 /17/18 09:31 18 09:31 03/19/18 09:31 03/19/18 09:31 03/18/18 20:35 Oxygen Flow Rate (L/min) 5 Oxygen Delivery Method Room Air Weight: 124.738 kg Body Mass Index (BMI) 55.5 Intake and Output for Last 24 Hours 03/17/18 03/18/18 03/19/18 23:59 23:59 23:59 Intake Total 6605 / 6605 1758 / 1758 Output Total 880 / 880 1950 / 1950 Balance 5725 / 5725 -192 / -192 Microbiology Past 72 Hours 03/17/18 18:00 Urine Culture - Final Urine, Clean Catch Culture exhibits no growth. Laboratory Tests Past 24 Hrs 03/18/18 11:45 WBC 14.1 H RBC 2.93 L Hgb 7.2 L Hct 23.0 L MCV 78.5 L MCH 24.6 L MCHC 31.3 L RDW 17.8 H RDW Differential 48.3 H Plt Count 263 MPV 9.9 Immature Gran % (Auto) 0.900 Neut % (Auto) 71.6 H Lymph % (Auto) 17.8 L [place] % (Auto) 8.9 Eos % (Auto) 0.6 Baso % (Auto) 0.2 Absolute Neuts (auto) 10.1 H Absolute Lymphs (auto) 2.50 Total Counted Not Reportable Medical Necessity - Tobacco Use Smoking Status: Never smoker Assessment/Plan All Active Problems (Last Reviewed 01/03/18 @ 07:10 by Jessie Neil) Gastroenteritis (Acute) Pharyngitis (Acute) URI (upper respiratory infection) (Acute) POD#2 Repeat C/S and BPS Complicated by iron deficiency anemia and hemorrhage due to atony. Received two units pRBCs. AVSS WBCs normalizing Repeat CBC was stable, Recommended iron BID. now documented intolerance to ferrous sulfate and ferrous gluconate. Trial of carbonyl iron once daily only. If unable to tolerate, because she is clinically stable will just observe for now but may consider later referral for IV iron. She will resume iron rich foods she states she ate in (but not effective prior) Wants to go home today. RTO in 2 wk for postop check and CBC then.
[2018-03-19 14:00] VITALS: BP 112/53; PULSE 90; RESP 20; TEMP 36.4
[2018-03-19] MEDS: Naproxen 250 MG Tablet PO (14:22)
--- NOTE | 2018-03-19 16:22 | CASEMGMT ---
Social Work Note Labor and Delivery Unit Consult received verbally by sheetmetal trades worker Dr. Tyler on 03-18-18 for maternal history of depression. Also received consult from OBGYN 03-18-18 at 1858 for same. This mortgage or loan underwriter familiar with patient/mother of baby from previous delivery at [facility] in 2016. Chart reviewed. Presented to MOB's room around 1015 today. MOB about to breastfeed and reports has had some latching issues so wanted to focus on this. MOB voiced remembering this mortgage or loan underwriter, and smiled in greeting. MOB reports visitors planned for this afternoon, so if social service liaison could return around [phone] that would be preferable. Father of baby (FOB) also in the room, changing baby's diaper during this time. Returned to MOB's room at 1130. MOB sleeping in bed, baby at mother's breast, but FOB awake and was sitting in chair next to baby's chart. MOB woke up and indicated that could talk now, but FOB did indicate that MOB has not slept much. This mortgage or loan underwriter agreed to come back tomorrow. MOB voiced agreement with this. Plan: See MOB tomorrow, 03-20-18 for assessment. -NAOMI Carranza, FUNERAL DIRECTOR AND EMBALMER
[2018-03-19 19:44] VITALS: BP 108/52; PULSE 76; RESP 16; TEMP 36.1; O2SAT 100
[2018-03-20 02:45] VITALS: BP 103/51; PULSE 87; RESP 16; TEMP 36.6; O2SAT 99
[2018-03-20] MEDS: oxyCODONE 5 MG Tablet PO ×2 (02:54→07:06)
--- NOTE | 2018-03-20 07:49 | PCM.PN.OB ---
Subjective: POD#3 repeat C/S and BPS Declined dischg yesterday . Feeling better today and states wants to go home. Sitting up in chair and nurse attempting to get baby to latch for breast feeding. - Physical Exam General: Alert, Oriented x3, Cooperative, No apparent distress HEENT: Atraumatic Neck: Supple Psych/Mental Status: Normal Affect Vital Signs Temp Pulse Resp BP Pulse Ox 97.9 F 87 16 103/51 L 99 03/20/18 02:45 03/20/18 02:45 03/20/18 02:45 03/20/18 02:45 03/20/18 02:45 Oxygen Flow Rate (L/min) 5 Oxygen Delivery Method Room Air Weight: 124.738 kg Body Mass Index (BMI) 55.5 Intake and Output for Last 24 Hours //18 //18 03/20/18 23:59 23:59 23:59 Intake Total 1758 / 1758 Output Total 1950 / 1950 Balance -192 / -192 Microbiology Past 72 Hours 03/17/18 18:00 Urine Culture - Final Urine, Clean Catch Culture exhibits no growth. Medical Necessity - Tobacco Use Smoking Status: Never smoker Assessment/Plan All Active Problems (Last Reviewed 18 @ 07:10 by Jessie Neil) Gastroenteritis (Acute) Pharyngitis (Acute) URI (upper respiratory infection) (Acute) POD#3 Repeat C/S and BPS Complicated by iron deficiency anemia and hemorrhage due to atony. Received two units pRBCs. AVSS WBCs normalizing Repeat CBC was stable, Recommended iron BID. now documented intolerance to ferrous sulfate and ferrous gluconate. Trial of carbonyl iron once daily only yesterday and ABLE to tolerate that. Requested dischg home yesterday, then refused. Wants to go home today. RTO in 2 wk for postop check and CBC then.
--- NOTE | 2018-03-20 07:52 | PCM.DC.SUM ---
Discharge Date and Diagnosis Date of Admission: 03/17/18 - Positive ROM prior C/S 38 wks Date of Discharge: 03/20/18 - POD#3 repeat C/s and BPS Hospital Course and Treatment Operations: - - Repeat C/S and bilateral partial salpingectomy Summary of Care Provided: The patient is a 32 year old female at 38 wk with h/o prior C/S presents with CC of SROM . Requests sterilization also. course complicated by iron deficiency anemia and had not been able to tolerate iron given so eating iron rich foods(liver, spinach). Preoperative Hgb 8.7 g/dl. Procedure uncomplicated and resulted in delivery on 8# 13 oz female. Postoperative hemorrhage due to uterine atony: treated by bimanual massage, bedside Banjo curettage, uterine tamponade balloon placement. Pitocin IV, Cytotec 1000 mcg NV, and Methergine given IM. 2 units pRBCs given and Hgb stabilized at 7.2 g/dl Able to tolerate daily carbonyl iron supplement . home on that as well as pain meds on POD#3 Clinically stable with benign exam. Discharge Diet: No Restrictions Discharge Activity: May not drive while taking narcotic pain medications., May Shower, May Take a Tub Bath Return to work on:: 05/13/18 May resume sexual activity in: 4-6 weeks Additional Activity Instructions:: Nothing in the vagina for 4-6 weeks. You may return to work/school in 6-8 weeks. Change Dressing in (Days):: 4 Remove Dressing in (days):: 4 Cleanse incision/area with: Soap & Water, Keep Dressing Clean & Dry Home Medications: Medications to take at Discharge Acetaminophen [Tylenol Extra Strength] 1,000 mg PO Q8H PRN 03/03/18 Vits [Prenatabs FA ] 1 tablet PO DAILY 03/03/18 Docusate Sodium [Colace] 100 mg PO BID PRN PRN #30 cap 03/17/18 Ferrous Gluconate 325 mg PO BIDCM #60 tab 03/17/18 Naproxen [Naprosyn] 250 - 500 mg PO TID PRN PRN #30 tab 03/17/18 Oxycodone [Oxyir] 5 - 10 mg PO Q6H PRN PRN 7 Days #28 tablet 03/17/18 Polyethylene Glycol 3350 [Miralax] 17 gm PO DAILY PRN #20 packet 03/17/18 Following Prescrptions Were Given to Patient: Oxycodone [Oxyir] 5 - 10 mg PO Q6H PRN PRN 7 Days #28 tablet PRN Reason: Mod-Severe Pain (-06/12) Docusate Sodium [Colace] 100 mg PO BID PRN PRN #30 cap PRN Reason: Constipation Naproxen [Naprosyn] 250 - 500 mg PO TID PRN PRN #30 tab PRN Reason: Mild-Mod Pain (-01/10) Polyethylene Glycol 3350 [Miralax] 17 gm PO DAILY PRN #20 packet PRN Reason: Constipation Ferrous Gluconate 325 mg PO BIDCM #60 tab Primary Care Physician: Jose Manuel Briseno DO [Primary Care Provider] - Please Follow Up With: Jessie Andersen MD - [phone] When: Call to make an appointment for an incision check in 2 weeks. Medical Necessity - Tobacco Use Smoking Status: Never smoker Meaningful Use Info Meaningful Use Diagnoses (Choose all that apply): None applicable
--- NOTE | 2018-03-20 07:57 | DS.PCM_ITS ---
Discharge Date and Diagnosis Date of Admission: 03/17/18 - Positive ROM prior C/S 38 wks Date of Discharge: 03/20/18 - POD#3 repeat C/s and BPS Hospital Course and Treatment Operations: - - Repeat C/S and bilateral partial salpingectomy Summary of Care Provided: The patient is a 32 year old female at 38 wk with h/o prior C/S presents with CC of SROM . Requests sterilization also. course complicated by iron deficiency anemia and had not been able to tolerate iron given so eating iron rich foods(liver, spinach). Preoperative Hgb 8.7 g/dl. Procedure uncomplicated and resulted in delivery on 8# 13 oz female. Postoperative hemorrhage due to uterine atony: treated by bimanual massage, bedside Banjo curettage, uterine tamponade balloon placement. Pitocin IV, Cytotec 1000 mcg [place], and Methergine given IM. 2 units pRBCs given and Hgb stabilized at 7.2 g /dl Able to tolerate daily carbonyl iron supplement . home on that as well as pain meds on POD#3 Clinically stable with benign exam. Discharge Diet: No Restrictions Discharge Activity: May not drive while taking narcotic pain medications., May Shower, May Take a Tub Bath Return to work on:: 05/13/18 May resume sexual activity in: 4-6 weeks Additional Activity Instructions:: Nothing in the vagina for 4-6 weeks. You may return to work/school in 6-8 weeks. Change Dressing in (Days):: 4 Remove Dressing in (days):: 4 Cleanse incision/area with: Soap & Water, Keep Dressing Clean & Dry Home Medications: Medications to take at Discharge Acetaminophen [Tylenol Extra Strength] 1,000 mg PO Q8H PRN 03/03/18 Vits [Prenatabs FA ] 1 tablet PO DAILY 03/03/18 Docusate Sodium [Colace] 100 mg PO BID PRN PRN #30 cap 03/17/18 Ferrous Gluconate 325 mg PO BIDCM #60 tab 03/17/18 Naproxen [Naprosyn] 250 - 500 mg PO TID PRN PRN #30 tab 03/17/18 Oxycodone [Oxyir] 5 - 10 mg PO Q6H PRN PRN 7 Days #28 tablet 03/17/18 Polyethylene Glycol 3350 [Miralax] 17 gm PO DAILY PRN #20 packet 03/17/18 Following Prescrptions Were Given to Patient: Oxycodone [Oxyir] 5 - 10 mg PO Q6H PRN PRN 7 Days #28 tablet PRN Reason: Mod-Severe Pain (-06/12) Docusate Sodium [Colace] 100 mg PO BID PRN PRN #30 cap PRN Reason: Constipation Naproxen [Naprosyn] 250 - 500 mg PO TID PRN PRN #30 tab PRN Reason: Mild-Mod Pain (-01/10) Polyethylene Glycol 3350 [Miralax] 17 gm PO DAILY PRN #20 packet PRN Reason: Constipation Ferrous Gluconate 325 mg PO BIDCM #60 tab Primary Care Physician: Jose Manuel Briseno DO [Primary Care Provider] - Please Follow Up With: Jessie Andersen MD - [phone] When: Call to make an appointment for an incision check in 2 weeks. Medical Necessity - Tobacco Use Smoking Status: Never smoker Meaningful Use Info Meaningful Use Diagnoses (Choose all that apply): None applicable
[2018-03-20 08:32] VITALS: BP 115/52; PULSE 77; RESP 20; TEMP 36.2; O2SAT 100
[2018-03-20] MEDS: Pantoprazole Sodium 20 MG Tablet PO (08:46)
[2018-03-20] MEDS: Prenatal Vits Tablet 1 TABLET PO (08:46)
[2018-03-20] MEDS: Senna/Docusate Sodium 1 Tablet PO (08:46)
[2018-03-20] MEDS: Naproxen 250 MG Tablet PO (08:51)
--- NOTE | 2018-03-20 10:00 | CASEMGMT ---
Social Work Assessment Labor and Delivery Unit Date of Referral: 03/18/2018 Time of Referral: [id number] Referred By: Dr. Andersen Date of Intervention: 03/20/18 Time of Intervention: 1000 Reason for Referral: maternal history of depression History obtained from: Medical record, patient/mother of baby (MOB) Fay Correa and father of baby (FOB) Prem Correa Household composition: MOB, FOB, and MOBs older child Elier live in the home. No reported or indicated safety concerns in the home. Patient's parent/guardian status: MOB, age 32, and FOB have been together for a year and a half, in June 2017. baby girl, Marina, is the first child for MOB and FOB together; the first child for FOB. MOB has one other child from a previous relationship. That child is Elier Carrasco, born 7-[birth year]. Gonzalo father is Tylor Macias. Current FOB reports intent to adopt Elire, as Tylor has no involvement with Elier. No reported or indicated safety concerns in the home. Medical History: MOB is G2, P1 to 2 after delivering Marina. care started at 10 weeks gestation. born via repeat caesarian section at 38weeks gestation. Infant weighed 8 pounds 13 ounces at . Apgars 8 and 9 at 1 and 5 minutes of life. Educational Status: MOB graduated high school. No reports of any issues with reading, writing, or learning comprehension. 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 MOB reports planning to take 12 weeks off of work, and then will decide on whether will be returning to work. FOB works fulltime in [employer]. Infant Supplies: Report to have all needed supplies including car seat, safe sleep space, clothing, diapers, wipes. Childcare/Caregiver(s): MOB. Parents do have babysitting in place for Elier. Transportation: No reported issues. Programs/Agencies Involved: [place] Medicaid through [facility]. No other agency involvement, but accepting of [facility] information in case financial situation changes. Children Services/Legal Issues: No reports of any children services issues, past or present. No reported legal issues. Behavioral Health Issues: MOB with history of s sleep deficit disorder, treated with Ritalin. No on medicine during . MOB with history of depression, anxiety, and depression and anxiety. MOB reports history of treatment with Zoloft 100 mg. MOB reports has not been on medicine during , but has been considering restarting. MOB reports history of counseling in [place], and after Elier was born a referral was made to [facility]. MOB reports did not go to the appointment. MOB denies any thoughts of dying, suicide or harm to others. MOB discussed that past depression and anxiety revolved around MOB having a fear that that [place]pa was going to be taken or stolen by someone. MOB reports sometimes has to check windows and locks. FOB reports MOB has even woken up in the middle of the night to bring Thapa to bed, due to MOB having anxiety about fears described above. MOB reports that due to being adopted herself, MOB believes this is what intensifies MOBs fears about Thapa. MOB reports the Zoloft really helped to keep the thoughts and worries in check, and for this reason is thinking of restarting medicine. MOB reports these worries are at times crippling. MOB denies any current or recent usage of drugs and alcohol. MOB did smoke marijuana prior to age 21. MOB reports at this time would not consider using anything as does not like to be out of control, and that worries too much to use anything mind altering. Family/Social Stressors: No recent life changed reported. unplanned but accepted. MOB reports to feel a connection to Marina and to be happy about her. MOB does endorse current depression, mostly anxiety. MOB reports awareness of symptoms, and that it may be important to seek some extra support. Support Systems: MOB reports FOB is a strong support, listens to MOB and helps MOB when having anxiety. FOB reports has been in counseling in the past, and knows how helpful support can be. MOB reports additional support from FOBs family and even MOBs family, though MOB reports at times MOBs family stresses me out. FOB will be home for a week, and then FOBs mom will be helping out for a week or so. Depression/Shaken Baby/Safe Sleeping: MOB and FOB able to give appropriate responses on shaken baby prevention and safe sleeping. Both engaged in discussion on depression, anxiety, risk factors present, and importance for self-care. FOB encouraging of MOB to seek out support for depression and anxiety. Through discussion, MOB reports agreement to restart Zoloft and that has been considering this even prior to delivery. As far as counseling, MOB reports that doesnt really want to leave the kids with anyone, as trust is an issue at this point. Talked with MOB about home based counseling options, which MOB reports would be open to. Educated MOB to [facility] in [place], and that this agency will at times provide said service, though MOB will have to go into office for initial assessment. MOB voice agreement with referral to this agency. FOB voiced support in this referral. ASSESSMENT: MOB cooperative, friendly, and nondefensive during social work visit. MOB with normal eye contact, affect congruent to content, speech and motor activity within normal limits. MOB reports that anxiety and worry is at times crippling, and that when having increased anxiety this increases depression as MOB is unhappy about worrying all of the time. MOB reports agreement to restart medication, perceiving that this has helped MOB in the past, and agrees to have a referral for home based counseling. MOB reports to have love and affection for baby. MOB will have help from MOB for a week, and then FOBs mother for the week after. MOB did look at baby and smile at baby, though hands on care observed by this verse writer was provided by FOB. FOB was attentive, gentle, and responsive to babys needs. PLAN: Will follow up with family later today, providing referral for counseling and community resource information. -MOHIT Carranza, [employer]
--- NOTE | 2018-03-20 11:30 | CASEMGMT ---
Social Work Note Labor and Delivery Unit Talked with nursing staff about calling the doctor regarding MOBs voiced desire to restart Zoloft. Nursing will call the doctor to see about getting a home going prescription. Release of information signed to [facility] in [place], for referral for counseling services/continuity of care. Called [facility], referral made. Requested patient be considered for home based therapy and some of the issues that patient is experiencing. Clinical director will take a look at referral and have assigned therapist call MOB to arrange an appointment. Met with MOB and FOB to review referral. Both voiced understanding that someone will be calling to set up a time and date. This typewriter ribbon winder did verify that had the right numbers for MOB and FOB. Provided [facility] resource packet, mood and anxiety packet including some online resources. [facility] information given. [facility] brochure given, tips on soothing baby/shaken baby prevention handout, and safe sleeping handout. MOB and FOB voiced thanks for assistance and support provided today. MOB voicing intent to follow through. No other services requested or indicated. Baby to home with MOB. MOB will have help from family, supplies are in place, and mental health referrals have been made. -NAOMI Carranza, INK TECHNICIAN
[2018-03-20 12:46] VITALS: BP 120/67; PULSE 75; RESP 16; TEMP 36.2; O2SAT 99
== END 2018-03-20 13:00 | disposition home or self-care (01) | DRG 765 ==
LOC: WPOUT 03:41
PROVIDERS: Admitting Provider Obstetrics & Gynecology; Family Provider Family Medicine; PCP Family Medicine; Visit Provider Obstetrics & Gynecology
DX: O34.211 Maternal care for low transverse scar from previous cesarean delivery (principal); O72.1 Other immediate postpartum hemorrhage; D62 Acute posthemorrhagic anemia; Z30.2 Encounter for sterilization; O99.02 Anemia complicating childbirth; D50.9 Iron deficiency anemia, unspecified; Z37.0 Single live birth; Z3A.38 38 weeks gestation of pregnancy; O77.0 Labor and delivery complicated by meconium in amniotic fluid
CPT/HCPCS: 81001; 82565; 84112; 84450; 84460; 84550; 85025; 85027; 85384; 85610; 85730; 86850; 86900; 86920; 87086; 88302; 99218; J7030; J7040; J7120; P9016; A4216; G0378; J2405

== ENCOUNTER 2018-03-21 10:55 | Outpatient (CLI) | payer OTHER, MEDICAID, SELFPAY | END 2018-03-21 12:00 | disposition home or self-care (01) | LOC: WPOUT 11:11 → WP 11:11 | PROVIDERS: Family Provider Family Medicine; PCP Family Medicine; Visit Provider Obstetrics & Gynecology | DX: R63.3 Feeding difficulties (principal) | CPT/HCPCS: 96152 ==

== ENCOUNTER → 2018-04-03 13:47 | Outpatient (CLI) | payer OTHER, MEDICAID, SELFPAY ==
[2018-04-03 15:49] LABS: Hematocrit 35.4 % (37-47); Hemoglobin 10.7 g/dl (12.0-15.0); Mean Corp Hgb Conc 30.2 g/gl (32-36); Mean Corpuscular Hgb 25.1 pg (27.0-32.0); Mean Corpuscular Volume 82.9 fL (81-99); Mean Platelet Vol. 9.5 fl (6.2-12.0); Platelet Count 526 K/mm3 (150-450); RBC Distribution Width CV 20.8 % (11.6-14.6); RBC Distribution Width SD 63.7 fl (35.1-43.9); Red Blood Count 4.27 M/mm3 (4.2-5.4); White Blood Count 8.1 K/mm3 (4.4-11.0)
[2018-04-03 15:55] LABS: Scan Indicated on CBC? Y/N YES- FLAGS NOTED
[2018-04-03 16:21] LABS: Differential Comment SCANNED
== END ==
PROVIDERS: Visit Provider Obstetrics & Gynecology
DX: O90.81 Anemia of the puerperium (principal)
CPT/HCPCS: 36415; 85027

== ENCOUNTER → 2018-05-08 11:51 | Outpatient (CLI) | payer MEDICAID, SELFPAY ==
[2018-05-08 14:39] LABS: Hematocrit 36.8 % (37-47); Hemoglobin 11.4 g/dl (12.0-15.0); Mean Corpuscular Hgb 25.5 pg (27.0-32.0); Mean Corpuscular Volume 82.3 fL (81-99); Mean Platelet Vol. 10.3 fl (6.2-12.0); Platelet Count 382 K/mm3 (150-450); RBC Distribution Width CV 18.8 % (11.6-14.6); RBC Distribution Width SD 57.1 fl (35.1-43.9); Red Blood Count 4.47 M/mm3 (4.2-5.4); White Blood Count 7.7 K/mm3 (4.4-11.0)
[2018-05-08 14:41] LABS: Scan Indicated on CBC? Y/N NO
[2018-05-08 15:13] LABS: Thyroid Stim Hormone (TSH) 0.54 uIU/mL (0.358-3.74)
== END ==
PROVIDERS: Visit Provider Obstetrics & Gynecology
DX: R53.83 Other fatigue (principal); R53.81 Other malaise; Z86.2 Personal history of diseases of the blood and blood-forming organs and certain disorders involving the immune mechanism
CPT/HCPCS: 36415; 84443; 85027

== ENCOUNTER 2018-07-06 13:40 | Emergency (ER) | payer MEDICAID, SELFPAY ==
[2018-07-06 13:40] VITALS: BP 129/92; PULSE 78; RESP 16; TEMP 36.1; O2SAT 96; BMI 61.6
--- NOTE | 2018-07-06 14:09 | ED.VISSUMM ---
- ER Visit Summary Date of Service: 07/06/18 Chief Complaint: Sore throat History of Present Illness: The patient is a [address] Lea. She reports that she has a sore throat began yesterday. Is 4-10 at worst and 2 out of 10 currently. Is worsened by swallowing and talking. She is not take anything for this. She denies any fever or chills. She reports that she has had clear rhinorrhea and a cough productive green sputum. Also complains that she has right ear pain and ringing in her right ear that is been present for months. On review of systems patient reports that she has had diarrhea every time I eat since delivering March 17. She reports that she has had this worked up by her primary care physician and they were unable to give her an explanation. She is taking probiotics. Physical Examination: Vitals: Stable. Afebrile. General: Well-nourished and well-developed. Head: Normocephalic atraumatic. HEENT: TMs within normal limits bilaterally. She has pharyngeal erythema. No tonsillar exudate or enlargement. No peritonsillar abscess. No pain with movement of her trachea. No cervical lymphadenopathy. Neck: Supple, no lymphadenopathy. No JVD. Nontender. Cardiovascular: Regular rate and rhythm. No murmurs. Respiratory: No respiratory distress. Clear to auscultation bilaterally. Abdominal: Soft, nontender, nondistended, normal bowel sounds. No guarding, rebound, or peritoneal signs. Back: Nontender. Extremities: Nontender, no edema. Skin: Normal color, no rash. Neurologic: Alert and oriented ?3. Cranial nerves II through XII are intact. Normal strength and sensation. Psych: Normal affect. Emergency Department Course and Treatment: Patient was reassured. At this time she has all the symptoms of a virus and her center score is 0. Treatment Plan: Patient will be discharged symptomatic care. Follow-up her primary care physician 1 week not improving. Return to the emergency department for any worsening symptoms. Disposition: To home in improved and stable condition. Impression: 1. URI. This note was generated with [employer] dictation software. It may contain incorrect words, spelling, and punctuation that were not noted in review of the chart prior to signing ED Disposition - Plan for ED Patient: Disposition: Home or Assisted Living Chief Complaint: Sore Throat Instructions: ED Upper Resp Infec No Abx Tx Referrals: Jose Manuel Briseno DO [Primary Care Provider] - 1 Week if not improving
== END 2018-07-06 14:42 | disposition home or self-care (01) ==
LOC: ED 14:20
PROVIDERS: Emergency Provider Emergency Medicine; Family Provider Family Medicine; PCP Family Medicine; Referring Provider Obstetrics & Gynecology
DX: J06.9 Acute upper respiratory infection, unspecified (principal); H93.11 Tinnitus, right ear
CPT/HCPCS: 99282

== ENCOUNTER 2018-09-04 12:26 | Emergency (ER) | payer MEDICAID, SELFPAY ==
[2018-09-04 12:27] VITALS: BP 125/70; PULSE 83; RESP 16; TEMP 36.6; O2SAT 97; BMI 51.0
[2018-09-04] MEDS: Ondansetron 4 MG/2 ML Vial IV (12:55)
[2018-09-04] MEDS: 0.9% Normal Saline 1,000 ML 1000 ML IV (12:55)
[2018-09-04 13:11] LABS: Bacteria 0 SEEN /hpf (None Seen); Mucous, Urine 0 SEEN /hpf (<or=2+); Red Blood Cells-Urine 0 SEEN /hpf (0-5)
[2018-09-04 13:17] LABS: Absolute Lymphocyte Count 1.51 X10^3/ul (0.83-4.51); Absolute Neutrophil Count 5.5 X10^3/uL (2.0-7.7); Basophil# 0.01 X10^3/uL; Basophil% 0.1 % (0-1); Color, Urine Yellow (Yellow); Eosinophil# 0.24 X10^3/uL; Eosinophils% 3.1 % (0-5); Glucose, Dipstick Normal (Normal); Hematocrit 37.8 % (37-47); Hemoglobin 11.9 g/dl (12.0-15.0); Ketone-Dipstick Negative (Negative); Leukocyte Esterase-Dipstick 25 /ul (Negative); Lymphocyte # 1.51 X10^3/ul (4.0); Lymphocyte % 19.4 % (19-41); Mean Corp Hgb Conc 31.5 g/gl (32-36); Mean Corpuscular Hgb 27.4 pg (27.0-32.0); Mean Corpuscular Volume 86.9 fL (81-99); Mean Platelet Vol. 9.5 fl (6.2-12.0); Monocyte# 0.49 X10^3/uL; Monocyte% 6.3 % (0-10); Neutrophil # 5.51 X10^3/uL (2.7-7.7); Nitrite-Dipstick Negative (Negative); Occult Blood-Urine Negative /ul (Negative); POSITIVE COUNT NO; POSITIVE DIFFERENTIAL NO; POSITIVE MORPHOLOGY NO; Platelet Count 311 K/mm3 (150-450); Protein-Dipstick Negative (Negative); RBC Distribution Width CV 16.7 % (11.6-14.6); RBC Distribution Width SD 53.6 fl (35.1-43.9); Red Blood Count 4.35 M/mm3 (4.2-5.4); Urine Bilirubin Dipstick Negative (Negative); Urine Clarity Sl. Cloudy (Clear); Urine Urobilinogen Normal (Normal); White Blood Count 7.8 K/mm3 (4.4-11.0)
[2018-09-04 13:20] LABS: Internal QC Validated? YES +Cl - CLEAR BKGD; Pregnancy, Urine Negative Negative
[2018-09-04 13:25] LABS: Squamous Epithelial Cells - UA 0-5 SEEN /hpf (5-10); White Blood Cells 0-5 SEEN /hpf (0-5)
[2018-09-04 13:35] LABS: ALB/GLOB Ratio 0.8 RATIO (0.9-2.4); AST(SGOT) 13 U/L (15-37); Alanine Aminotransfer ALT/SGPT 25 U/L (13-56); Albumin, Serum 3.7 g/dL (3.2-5.0); Alkaline Phosphatase 96 U/L (45-117); Anion Gap 7 (5-15); BUN 7 mg/dL (7-18); BUN/Creat Ratio 9.3 RATIO (10-20); Calcium,Total 8.5 mg/dL (8.5-10.1); Chloride 106 mmol/L (98-107); Creatinine, Serum 0.75 mg/dL (0.55-1.02); EST Glomerular Filtration Rate 94 mL/min (>60); Est Glom Filt Rate - Afr Amer 114 mL/min (>60); Estimated Creatinine Clearance 193.02 ml/min; Globulin 4.4 g/dL (2.2-4.2); Glucose 95 mg/dL (74-106); Lipase 82 U/L (73-393); Protein, Total 8.1 g/dL (6.4-8.2); Sodium Level 138 mmol/L (136-145)
[2018-09-04 14:42] VITALS: BP 132/77; PULSE 72; RESP 18; O2SAT 100
--- NOTE | 2018-09-04 15:21 | ED.VISSUMM ---
- ER Visit Summary Date of Service: 09/04/18 Chief Complaint: Nausea vomiting and diarrhea History of Present Illness: The patient is a 33 F who presents with nausea, vomiting, and diarrhea for the past 2 days. Patient also admits to abdominal pain that is sharp and throbbing. Patient states the pain is over the upper abdomen. Patient thinks she may have had some coffee-ground emesis but denies any hematemesis. Patient denies any melena or hematochezia. Patient states her diarrhea is watery. Patient denies any urinary complaints. Patient states her last menstrual period was approximately 1 month ago. Physical Examination: Vital signs are stable. Patient is afebrile. Patient is in no acute distress. Oral mucosa is pink and moist. Neck is supple. Trachea is midline. There is no JVD noted. Heart was regular rate and rhythm. Lungs are clear and equal bilateral. Abdomen is soft. There is mild diffuse tenderness. There is no rebound or guarding noted. Cranial nerves II through XII are intact. There are no focal motor or sensory deficits noted. The remaining physical exam is within normal limits. Test Results: CBC, comprehensive metabolic profile, urinalysis, and hCG were obtained and were all normal. Emergency Department Course and Treatment: Patient was given IV fluids and Zofran here. Patient felt better on reevaluation. Patient was given a prescription for Zofran. Patient was instructed to start with a liquid diet and advance to a bland diet then to a regular diet as tolerated. Patient was instructed to follow-up with her primary care physician in 5-7 days. Patient understood and was agreeable with the plan. All questions were answered. Disposition: Discharged home Impression: Nausea vomiting and diarrhea This note was generated with [employer] dictation software. It may contain incorrect words, spelling, and punctuation that were not noted in review of the chart prior to signing ED Disposition - Plan for ED Patient: Disposition: Home or Assisted Living Chief Complaint: Nausea/Vomiting Diagnosis: Nausea vomiting and diarrhea Instructions: ED Nausea Vomiting Prescriptions: Ondansetron [Zofran Odt] 4 mg PO Q8H PRN PRN #10 tab PRN Reason: Nausea Referrals: Jose Manuel Briseno DO [Primary Care Provider] -
[2018-09-04 15:31] VITALS: BP 139/73; PULSE 74; RESP 18; O2SAT 99
== END 2018-09-04 15:32 | disposition home or self-care (01) ==
PROVIDERS: Emergency Provider Emergency Medicine; Family Provider Family Medicine; PCP Family Medicine
DX: R11.2 Nausea with vomiting, unspecified (principal); R19.7 Diarrhea, unspecified; R10.11 Right upper quadrant pain; R10.12 Left upper quadrant pain; R68.83 Chills (without fever); M54.9 Dorsalgia, unspecified; R51 Headache; M06.9 Rheumatoid arthritis, unspecified; L40.9 Psoriasis, unspecified
CPT/HCPCS: 80053; 81001; 81025; 83690; 85025; 96361; 96374; 99283; J7030; J2405

== ENCOUNTER 2019-01-12 07:07 | Observation (INO) | payer MEDICAID, SELFPAY ==
[2019-01-12] VITALS (9 sets, daily range): BP systolic 115–158; BP diastolic 66–94; PULSE 54–80; RESP 16–22; TEMP 36.6–36.9; O2SAT 96–100; BMI 50.5; BMI 52.0
--- NOTE | 2019-01-12 07:25 | CT_ITS ---
STUDY: CT BRAIN WITHOUT CONTRAST REASON FOR EXAM: Female, 33 years old. Headache. Sinus infection 2 weeks ago RADIATION DOSAGE (If Supplied By Facility): CTDIvol = ( 44.99 ) mGy, DLP = ( 762.36 ) mGycm TECHNIQUE: Transaxial CT imaging of the brain was performed without administration of intravenous contrast material. Individualized dose optimization techniques were used for this CT. COMPARISON: No relevant priors. FINDINGS: Patient has significant pansinusitis. Best seen on the sagittal sequence, just above the cribriform plate, there is an area of hypodensity which may represent fluid and extension of the paranasal sinus disease intracranially. This measures roughly 9.8 x 5.1 mm. This could represent a small epidural abscess. 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 No evidence of intracranial hemorrhage or acute ischemia. CT/Brain/Head without Contrast IMPRESSION: Given the history of long-standing sinusitis and current imaging findings, there is high concern for a small epidural abscess suggesting intracranial extension of paranasal sinus disease above the cribriform plate. This is called a Pott's puffy tumor. MRI brain with and without contrast will be needed to further evaluate. Electronically Signed: Justus Dickerson DO at 9:04 EDT Tel , Service support ,
--- NOTE | 2019-01-12 07:29 | ED.DCSUM_ITS ---
- ER Visit Summary Date of Service: 01/12/19 Chief Complaint: Headache History of Present Illness: The patient is a 33 F who presents with a severe headache for 1 hour. Patient has been battling a sinus infection for 4 weeks. She has been having posterior neck pain and throbbing headache ongoing for the last several days and is been taking Vicodin for it. The Vicodin will help but then when it wears off the headache returns. Patient is having the same headache this morning but states it is much more severe. She has associated nausea, a cough, and is on Ceftin ear currently for the sinus infection. No abdominal pain, chest pain, shortness of breath. No numbness or weakness in the arms or legs. Patient has a history of narcolepsy. No alcohol or tobacco use. She is status post tubal ligation. Physical Examination: Vital signs: afebrile, hemodynamically stable, no hypoxia on room air General: well nourished, well developed, laying in bed with the lights on, rubbing the base of her skull Skin: warm, dry, no rash, no pallor HEENT: normocephalic and atraumatic; tenderness to palpation of the scalp and the superior posterior neck, tenderness along the paraspinal musculature and the trapezius bilaterally, no meningismus, patient able to move neck full range of motion ;PERRL, EOMI, no pain with movement of the eyes, moist mucous membranes Cardiovascular: regular rate and rhythm without murmurs, no peripheral edema, 2+ pulses all distal extremities Respiratory: No increased work of breathing, lungs are clear to auscultation bilaterally, no rales, rhonchi or wheezing Abdominal: Abdomen is soft, nontender with normoactive bowel sounds, no guarding or rebound, no masses MSK: Moves all extremities, no deformities, normal strength Neuro: Awake and alert, oriented ?4. No facial droop, sensation and motor function intact and symmetric Test Results: Abnormal Lab Results 01/12/19 01/12/19 01/12/19 07:35 07:35 07:35 WBC 10.2 RBC 4.12 L Hgb 10.5 L Hct 32.9 L MCV 79.9 L MCH 25.5 L MCHC 31.9 L RDW 14.9 H RDW Differential 42.5 Plt Count 370 MPV 9.0 Immature Gran % (Auto) 0.200 Neut % (Auto) 65.4 Lymph % (Auto) 25.0 Noble % (Auto) 6.6 Eos % (Auto) 2.5 Baso % (Auto) 0.3 Absolute Neuts (auto) 6.7 Absolute Lymphs (auto) 2.55 Total Counted Not Reportable Sodium 136 Potassium 3.9 Chloride 105 Carbon Dioxide 25.0 Anion Gap 6 BUN 13 Creatinine 0.67 Estim Creat Clear Calc 213.80 Est GFR (MDRD) Af Amer 131 Est GFR (MDRD) Non-Af 108 BUN/Creatinine Ratio 19.5 Glucose 108 H Calcium 8.4 L Serum , Qual NEGATIVE Clinical Impression(s) from Imaging Studies Brain CT 01/12/19 07:25 IMPRESSION: Given the history of long-standing sinusitis and current imaging findings, there is high concern for a small epidural abscess suggesting intracranial extension of paranasal sinus disease above the cribriform plate. This is called a Pott's puffy tumor. MRI brain with and without contrast will be needed to further evaluate. Electronically Signed: Justus Dickerson DO at 9:04 EDT Tel , Service support , Brain MRI 01/12/19 09:13 IMPRESSION: Severe paranasal sinus disease. No intracranial disease. Electronically Signed: Amairani Black MD at 11:20 EDT Tel , Service support , Medications Given Vancomycin HCl 2,000 mg/ (Sodium Chloride) 540 mls @ 250 mls/hr IV X1 ONE Stop: 01/12/19 12:09 Ketorolac Tromethamine (Toradol) 15 mg IV X1 ONE Stop: 01/12/19 11:39 Discontinued Medications Diphenhydramine HCl (Benadryl) 25 mg IV X1 ONE Stop: 01/12/19 07:25 Last Admin: 01/12/19 07:41 Dose: 25 mg Hydromorphone HCl (Dilaudid Inj) 0.5 mg IV X1 ONE Stop: 01/12/19 10:41 Last Admin: 01/12/19 11:31 Dose: 0.5 mg Sodium Chloride () 1,000 mls @ 999 mls/hr IV .Q1H1M ONE Stop: 01/12/19 08:24 Last Admin: 01/12/19 07:41 Dose: 999 mls/hr Ceftriaxone Sodium 2 gm/ (Sodium Chloride) 50 mls @ 100 mls/hr IV X1 ONE Stop: 01/12/19 09:43 Last Admin: 01/12/19 10:02 Dose: 100 mls/hr Metronidazole (Flagyl) 500 mg in 100 mls @ 100 mls/hr IV X1 ONE Stop: 01/12/19 10:13 Last Admin: 01/12/19 11:32 Dose: 100 mls/hr Metoclopramide HCl (Reglan) 10 mg IV X1 ONE Stop: 01/12/19 07:25 Last Admin: 01/12/19 07:41 Dose: 10 mg Emergency Department Course and Treatment: Patient presents with a severe headache without any neurologic deficits on exam and no meningismus. Patient had no leukocytosis, and labs were unremarkable, including a negative test. Because of the severe headache in the context of her recent sinus infection, head CT was performed. There was concerning finding for possible small epidural abscess extension from the severe pansinusitis. Patient was started empirically on treatment for concern for epidural abscess, and given Rocephin, metronidazole and vancomycin. Patient received IV fluids, Reglan and Benadryl, with initial improvement in her headache. Patient was able to sit comfortably and tolerate the light. Patient then had recurrent worsening of her headache and was given Dilaudid. Because of the concerning finding on the head CT, MRI with and without contrast was performed and showed the pansinusitis but did not demonstrate any epidural abscess or extra-axial fluid collection. Patient was discussed with Dr. Garnett, who reviewed the MRI and CT scan with radiology, and agreed that there was no sign of epidural abscess. He was concerned by the extent of the pansinusitis and the risk of it progressing to an epidural abscess. He recommended ENT consult and admission of patient for continuation of IV antibiotics. Patient was discussed with Dr. Saleh, provide ENT consult, and Dr. Johnson who will admit for further management of severe pansinusitis and headache. After a dose of Toradol, patient's headache was much improved. Neck was supple with full active range of motion without pain, no meningismus. She was admitted in improved condition and in no further acute distress. Treatment Plan: [] Disposition: [] Impression: [] This note was generated with [employer] dictation software. It may contain incorrect words, spelling, and punctuation that were not noted in review of the chart prior to signing ED Disposition - Plan for ED Patient: Disposition: Acute [facility]
[2019-01-12 07:41] LABS: Absolute Lymphocyte Count 2.55 X10^3/ul (0.83-4.51); Absolute Neutrophil Count 6.7 X10^3/uL (2.0-7.7); Basophil# 0.03 X10^3/uL; Basophil% 0.3 % (0-1); Eosinophil# 0.25 X10^3/uL; Eosinophils% 2.5 % (0-5); Hematocrit 32.9 % (37-47); Hemoglobin 10.5 g/dl (12.0-15.0); Lymphocyte # 2.55 X10^3/ul (4.0); Mean Corp Hgb Conc 31.9 g/gl (32-36); Mean Corpuscular Hgb 25.5 pg (27.0-32.0); Mean Corpuscular Volume 79.9 fL (81-99); Monocyte# 0.67 X10^3/uL; Monocyte% 6.6 % (0-10); Neutrophil # 6.67 X10^3/uL (2.7-7.7); Neutrophil % 65.4 % (47-70); Platelet Count 370 K/mm3 (150-450); RBC Distribution Width CV 14.9 % (11.6-14.6); RBC Distribution Width SD 42.5 fl (35.1-43.9); Red Blood Count 4.12 M/mm3 (4.2-5.4); White Blood Count 10.2 K/mm3 (4.4-11.0)
[2019-01-12] MEDS: Metoclopramide 10 MG/2 ML Vial IV (07:41)
[2019-01-12] MEDS: DiphenhydrAMINE 50 MG/ML Syringe 25 MG IV (07:41)
[2019-01-12] MEDS: 0.9% Normal Saline 1,000 ML 999 ML IV (07:41)
[2019-01-12 07:42] LABS: POSITIVE COUNT NO; POSITIVE DIFFERENTIAL NO; POSITIVE MORPHOLOGY NO
[2019-01-12 07:52] LABS: Anion Gap 6 (5-15); BUN 13 mg/dL (7-18); BUN/Creat Ratio 19.5 RATIO (10-20); Calcium,Total 8.4 mg/dL (8.5-10.1); Chloride 105 mmol/L (98-107); Creatinine, Serum 0.67 mg/dL (0.55-1.02); EST Glomerular Filtration Rate 108 mL/min (>60); Est Glom Filt Rate - Afr Amer 131 mL/min (>60); Glucose 108 mg/dL (74-106); Potassium 3.9 mmol/L (3.5-5.1); Sodium Level 136 mmol/L (136-145)
[2019-01-12 07:54] LABS: Internal QC Validated? YES +Cl - CLEAR BKGD
[2019-01-12 07:55] LABS: Pregnancy, Serum, hCG Quali. NEGATIVE Negative
--- NOTE | 2019-01-12 09:13 | MRI_ITS ---
STUDY: MRI BRAIN WITH AND WITHOUT CONTRAST REASON FOR EXAM: Female, 33 years old. PAT[place] Headache abnormal ct, sinus infection. TECHNIQUE: Standardized multiplanar fat and water weighted pulse sequences were obtained. 23 IV Dotarem was administered for the contrast portion of the examination. COMPARISON: 01/12/2019 FINDINGS: Normal size of the ventricles and extra-axial spaces for the patient's age. Normal white matter tracts of the supratentorial brain. Normal bilateral basal ganglia. Normal thalami. There is no extra-axial fluid accumulation. Normal flow voids within the major intracranial circulation suggesting patency by spin echo criteria. Normal venous enhancement. There is no enhancing intra-axial or extra-axial abnormality. Normal sella turcica, pituitary gland, infundibular stalk, optic chiasm and hypothalamus. Normal tectal plate and pineal gland. Normal midbrain, tim and medulla. Normal cerebellum. Normal basal cisterns. Normal bilateral temporal bones. Normal bilateral internal auditory canals. There is mucoperiosteal inflammatory disease of the paranasal sinuses consistent with severe sinusitis. MRI/Brain W/WO Contrast IMPRESSION: Severe paranasal sinus disease. No intracranial disease. Electronically Signed: Amairani Black MD at 11:20 EDT Tel , Service support ,
[2019-01-12] MEDS: HYDROmorphone 0.5 MG/0.5 ML SYRINGE IV ×3 (11:31→23:41)
[2019-01-12] MEDS: Ketorolac 15 MG/ML Vial IV (12:41)
--- NOTE | 2019-01-12 13:22 | NURSING ---
MED SURG OBS KITTOE SEVERE PANSINUSITIS
--- NOTE | 2019-01-12 13:31 | HP.PCM_ITS ---
Problem List (1) Sinusitis Status: Acute (2) Narcolepsy Status: Acute (3) Depression Status: Acute (4) BMI 50.0-59.9, adult Status: Acute History of Present Illness Date of Admission: 01/12/19 Chief Complaint: Severe headache The patient is a 33 year old F with history of chronic sinusitis who was apparently been diagnosed with acute sinusitis for which she has received treatment for the past 4 weeks without much improvement. Patient woke up on the morning of her admission with excruciating headache. In view of the extreme nature of her headache she presented to the emergency department. Initial head CT obtained in the ED was questionable for small epidural abscess suggesting intracranial extension of paranasal sinus disease above the cribriform plate. Subsequent imaging studies with an MRI however did not demonstrate any presence of epidural abscess but instead is severe case of paranasal sinus disease. The ENT surgeon asset protection manager Dr. Ant Saleh was notified in addition to Dr. Garnett with neurology. Patient was started on broad-spectrum antibiotics therapy and admitted to regular nursing floor for further management Past Medical History Medical History: Medical History (Last Reviewed 01/12/19 @ 13:52 by Kevan Johnson MD) Anemia D64.9 Diarrhea R19.7 Fatigue R53.83 Shortness of breath R06.02 [place] teeth extracted K08.409 Allergies kiwi Allergy (Verified 01/12/19 07:10) Anaphylaxis amoxicillin [From Augmentin] Adverse Reaction (Verified 01/12/19 07:10) Diarrhea clavulanic acid [From Augmentin] Adverse Reaction (Verified 01/12/19 07:10) Diarrhea formaldehyde Adverse Reaction (Verified 01/12/19 07:10) Rash latex Adverse Reaction (Verified 01/12/19 07:10) Rash cardboard Adverse Reaction (Uncoded 01/12/19 07:10) Rash Home Medications: Ambulatory Orders Medication Instructions Recorded Montelukast [Singulair] 10 mg PO DAILY 07/06/18 Cefdinir 300 mg PO DAILY 01/12/19 Fluticasone Propionate 50 mcg INHALATION DAILY 01/12/19 Methylphenidate HCl [Ritalin] 20 mg PO DAILY 01/12/19 Sertraline HCl [Zoloft] 100 mg PO DAILY 01/12/19 Surgical History: Surgical History (Last Reviewed 01/12/19 @ 13:52 by Kevan Johnson MD) History of Z98.891 Smoking Status: Never smoker - *Family History Maternal History Items: - - No knowledge of family history patient was adopted Review of Systems Constitutional: Reports: Malaise, Fatigue HEENT: Reports: Head Aches, Nasal Congestion, Sinus Drainage Cardiovascular: Denies: Chest Pain, Orthopnea, Palpitations, Paroxysmal Noc. Dyspnea Respiratory: Denies: Cough, Shortness of breath at rest, Shortness of breath upon exertion, Sputum production Gastrointestinal: Denies: Abdominal Pain, Hematemesis, Hematochezia, Nausea, Melena, Vomiting Genitourinary: Denies: Dysuria, Frequency, Hematuria, Urgency Musculoskeletal: Denies: Joint Pain, Joint Tenderness Neurological: Denies: Focal weakness, Numbness, Tingling Psychiatric: Denies: Homicidal Ideations, Suicidal Ideations Hematologic/ Lymphatic: Denies: Easy Bruising, Easy Bleeding VTE Information - Inpt Only VTE Present on Admission: No VTE Mechan Device Prophylaxis: Knee High MICHELLE Hose VTE Pharm Prophylaxis ordered?: Yes Patient Problems: Active and Suspected Problems (Last Reviewed 01/03/18 @ 07:10 by Jessie Neil) Sinusitis (Acute) Narcolepsy (Acute) Depression (Acute) BMI 50.0-59.9, adult (Acute) Objective: GENERAL: cooperative HEENT: Atraumatic; EYES; Anicteric, Normal Conjunctiva NECK; supple, normal thyroid, RESPIRATORY: Diminished to auscultation bilaterally, CARDIOVASCULAR: Regular S1 S2, GI: soft, non-tender, normoactive bowel sounds, : No Renal angle tenderness; EXTREMITIES: No edema, no clubbing, no cyanosis. MUSCULOSKELETAL: No Joint Tenderness; NEURO: Awake; no lateralizing signs. SKIN: No Rash PSYCH; Normal affect - Physical Exam Vital Signs Temp Pulse Resp BP Pulse Ox 98 F 60 17 118/66 97 01/12/19 07:08 01/12/19 13:24 01/12/19 13:24 01/12/19 13:24 01/12/19 13:24 Oxygen Delivery Method Room Air Weight: 113.398 kg Body Mass Index (BMI) 50.5 Laboratory Tests Past 24 Hrs 01/12/19 01/12/19 01/12/19 07:35 07:35 07:35 WBC 10.2 RBC 4.12 L Hgb 10.5 L Hct 32.9 L MCV 79.9 L MCH 25.5 L MCHC 31.9 L RDW 14.9 H RDW Differential 42.5 Plt Count 370 MPV 9.0 Immature Gran % (Auto) 0.200 Neut % (Auto) 65.4 Lymph % (Auto) 25.0 [place] % (Auto) 6.6 Eos % (Auto) 2.5 Baso % (Auto) 0.3 Absolute Neuts (auto) 6.7 Absolute Lymphs (auto) 2.55 Total Counted Not Reportable Sodium 136 Potassium 3.9 Chloride 105 Carbon Dioxide 25.0 Anion Gap 6 BUN 13 Creatinine 0.67 Estim Creat Clear Calc 213.80 Est GFR (MDRD) Af Amer 131 Est GFR (MDRD) Non-Af 108 BUN/Creatinine Ratio 19.5 Glucose 108 H Calcium 8.4 L Serum , Qual NEGATIVE Assessment/Plan All Active Problems (Last Reviewed 01/03/18 @ 07:10 by Jessie Neil) Sinusitis (Acute) Narcolepsy (Acute) Depression (Acute) BMI 50.0-59.9, adult (Acute) Gastroenteritis (Acute) Pharyngitis (Acute) URI (upper respiratory infection) (Acute) Patient is a 33-year-old lady presented with severe headache diagnosed with acute paranasal sinusitis admitted to regular nursing floor for inpatient management 1. Acute sinusitis patient apparently did feel outpatient therapy admitted to regular nursing floor. Patient was started on Unasyn 3 g every 6 (patient apparently has an allergy to Augmentin reported reaction?diarrhea). Consultation was placed to ENT as well as infectious disease 2. Chronic sinusitis 3. Morbid obesity with BMI of 50.5 weight loss advised 4. Narcolepsy patient is on Ritalin 5. Depression patient is on SSRI 6. DVT prophylaxis SC Lovenox 40 mg every 12 Code Visit Inpatient E&M: 50311 Subs Hosp L3
[2019-01-12] MEDS: oxyCODONE 5 MG Tablet 10 MG PO ×2 (15:17→21:13)
--- NOTE | 2019-01-12 18:15 | PN_ITS ---
Progress Note Asked to see the patient for sinusitis 33 yo white female who has started with a URI 4 weeks ago. She felt that it never went away. Over the past 3 weeks she has had progressive pressure in the face/head, purulent nasal discharge. She saw Dr. Ford 6 days ago who prescribed cefdinir. This morning she woke up with a bad headache and presented to the ER. A ct brain was performed that necessitated an MRI of the brain to rule out epidural abscess. This was not found. She reports that her head is better now but still sore. She has had difficulty with sinusitis in the past and has been prescribe flonase and singulair for this. She has never had sinus surgery, a previous sinus CT, allergy testing or immune work up. \ \ Past Medical History Medical History: Medical History (Last Reviewed 01/12/19 @ 13:52 by Kevan Johnson MD) Anemia D64.9 Diarrhea R19.7 Fatigue R53.83 Shortness of breath R06.02 [place] teeth extracted K08.409 Allergies kiwi Allergy (Verified 01/12/19 07:10) Anaphylaxis amoxicillin [From Augmentin] Adverse Reaction (Verified 01/12/19 07:10) Diarrhea clavulanic acid [From Augmentin] Adverse Reaction (Verified 01/12/19 07:10) Diarrhea formaldehyde Adverse Reaction (Verified 01/12/19 07:10) Rash latex Adverse Reaction (Verified 01/12/19 07:10) Rash cardboard Adverse Reaction (Uncoded 01/12/19 07:10) Rash Home Medications: Ambulatory Orders Medication Instructions Recorded Montelukast [Singulair] 10 mg PO DAILY 07/06/18 Cefdinir 300 mg PO DAILY 01/12/19 Fluticasone Propionate 50 mcg INHALATION DAILY 01/12/19 Methylphenidate HCl [Ritalin] 20 mg PO DAILY 01/12/19 Sertraline HCl [Zoloft] 100 mg PO DAILY 01/12/19 Surgical History: Surgical History (Last Reviewed 01/12/19 @ 13:52 by Kevan Johnson MD) History of Z98.891 Smoking Status: Never smoker - *Family History Maternal History Items: - - No knowledge of family history patient was adopted Review of Systems Constitutional: Reports: Malaise, Fatigue HEENT: Reports: Head Aches, Nasal Congestion, Sinus Drainage Cardiovascular: Denies: Chest Pain, Orthopnea, Palpitations, Paroxysmal Noc. Dyspnea Respiratory: Denies: Cough, Shortness of breath at rest, Shortness of breath upon exertion, Sputum production Gastrointestinal: Denies: Abdominal Pain, Hematemesis, Hematochezia, Nausea, Melena, Vomiting Genitourinary: Denies: Dysuria, Frequency, Hematuria, Urgency Musculoskeletal: Denies: Joint Pain, Joint Tenderness Neurological: Denies: Focal weakness, Numbness, Tingling Psychiatric: Denies: Homicidal Ideations, Suicidal Ideations Hematologic/ Lymphatic: Denies: Easy Bruising, Easy Bleeding CT Brain- minimal frontal sinusitis. No air fluid levels in the frontals. + air fluid level in the sphenoid sinus + ethmoiditis bilaterally and maxillary sinusitis bilaterally with near complete opacification of the maxillary sinuses. PE: awake alert nad. Smiling and laughing at bedside Tms wnl bilaterally Nose- + congestion without purulence M/op no purulence neck no adenopathy wbc=10.2 A: Acute on chronic sinusitis P: Continue antibiotics. Discharge when pain is better. She will need a minimum of 3 weeks of antibiotics as well as saline irrigation and flonase. Follow up outpatient.
[2019-01-12] MEDS: Enoxaparin 40 MG/0.4 ML Syringe SC (21:07)
[2019-01-13] MEDS: oxyCODONE 5 MG Tablet 10 MG PO ×2 (03:13→07:29)
[2019-01-13 03:34] VITALS: BP 142/96; PULSE 69; RESP 18; TEMP 36.6; O2SAT 100
[2019-01-13] MEDS: HYDROmorphone 0.5 MG/0.5 ML SYRINGE IV (03:38)
[2019-01-13] MEDS: DiphenhydrAMINE 50 MG/ML Syringe 25 MG IV (05:53)
[2019-01-13 06:18] LABS: Absolute Lymphocyte Count 2.47 X10^3/ul (0.83-4.51); Basophil# 0.03 X10^3/uL; Basophil% 0.3 % (0-1); Eosinophil# 0.31 X10^3/uL; Eosinophils% 3.3 % (0-5); Hematocrit 31.3 % (37-47); Hemoglobin 9.5 g/dl (12.0-15.0); Lymphocyte # 2.47 X10^3/ul (4.0); Lymphocyte % 26.1 % (19-41); Mean Corp Hgb Conc 30.4 g/gl (32-36); Mean Corpuscular Hgb 24.8 pg (27.0-32.0); Mean Corpuscular Volume 81.7 fL (81-99); Mean Platelet Vol. 9.9 fl (6.2-12.0); Monocyte# 0.62 X10^3/uL; Monocyte% 6.5 % (0-10); Neutrophil # 6.01 X10^3/uL (2.7-7.7); Neutrophil % 63.4 % (47-70); Platelet Count 350 K/mm3 (150-450); RBC Distribution Width CV 15.1 % (11.6-14.6); Red Blood Count 3.83 M/mm3 (4.2-5.4); White Blood Count 9.5 K/mm3 (4.4-11.0)
[2019-01-13 06:33] LABS: Anion Gap 5 (5-15); BUN 10 mg/dL (7-18); BUN/Creat Ratio 15.5 RATIO (10-20); Calcium,Total 8.2 mg/dL (8.5-10.1); Chloride 107 mmol/L (98-107); Creatinine, Serum 0.64 mg/dL (0.55-1.02); EST Glomerular Filtration Rate 112 mL/min (>60); Est Glom Filt Rate - Afr Amer 136 mL/min (>60); Estimated Creatinine Clearance 230.44 ml/min; Glucose 108 mg/dL (74-106); Magnesium 1.9 mg/dL (1.6-2.6); Potassium 4.6 mmol/L (3.5-5.1); Sodium Level 136 mmol/L (136-145)
[2019-01-13 06:44] LABS: POSITIVE COUNT NO; POSITIVE DIFFERENTIAL NO; POSITIVE MORPHOLOGY NO
[2019-01-13 07:30] VITALS: O2SAT 98
--- NOTE | 2019-01-13 09:39 | DCINST_ITS ---
- Discharge Diagnoses Current Active Problems: Current Active and Chronic Problems (Last Reviewed 01/12/19 @ 13:52 by Kevan Johnson MD) Sinusitis (Acute) Narcolepsy (Acute) Depression (Acute) BMI 50.0-59.9, adult (Acute) You will use the following diet at home:: Regular Your food should be the consistency of: Regular Your liquids should be the consistency of: Regular/Thin Discharge Activity: Return to Normal Activity Call your doctor if you observe: Fever of 101 or Higher, Shortness of breath, Dizziness, Fainting spells, Chest pain, Increased palpitations (irregular heartbeat) Additional Instructions: Continue with nasal irrigations and then flonase after. Allergies/Adverse Reactions: Allergies kiwi Allergy (Verified 01/12/19 07:10) Anaphylaxis amoxicillin [From Augmentin] Adverse Reaction (Verified 01/12/19 07:10) Diarrhea clavulanic acid [From Augmentin] Adverse Reaction (Verified 01/12/19 07:10) Diarrhea formaldehyde Adverse Reaction (Verified 01/12/19 07:10) Rash gluten Adverse Reaction (Verified 01/12/19 14:57) Other latex Adverse Reaction (Verified 01/12/19 07:10) Rash cardboard Adverse Reaction (Uncoded 01/12/19 07:10) Rash Medications to take at Discharge Montelukast [Singulair] 10 mg PO DAILY 07/06/18 Fluticasone Propionate 50 mcg INHALATION DAILY 01/12/19 Methylphenidate HCl [Ritalin] 20 mg PO DAILY 01/12/19 Sertraline HCl [Zoloft] 100 mg PO DAILY 01/12/19 Cefdinir 300 mg PO BID #42 capsule 01/13/19 Prednisone [Deltasone] 40 mg PO DAILY #14 tablet 01/13/19 The following prescriptions were given: Prednisone [Deltasone] 40 mg PO DAILY #14 tablet Cefdinir 300 mg PO BID #42 capsule Primary Care Physician: Jose Manuel Briseno DO [Primary Care Provider] - Please follow up with your Primary Care Physician in: 3-5 days Test Results: Test results from this visit will be discussed in further detail at your follow- up appointment, if applicable. Please Follow Up With: Ant Saleh MD When: 1-2 weeks
--- NOTE | 2019-01-13 09:39 | PCM.DC.SUM ---
Discharge Date and Diagnosis - Problem List Patient Problems: Active and Suspected Problems (Last Reviewed 01/12/19 @ 13:52 by Kevan Johnson MD) Sinusitis (Acute) Narcolepsy (Acute) Depression (Acute) BMI 50.0-59.9, adult (Acute) Date of Admission: 01/12/19 Date of Discharge: 01/13/19 - Primary Discharge Diagnosis Active and Suspected Problems (Last Reviewed 01/12/19 @ 13:52 by Kevan Johnson MD) Sinusitis (Acute) Narcolepsy (Acute) Depression (Acute) BMI 50.0-59.9, adult (Acute) Hospital Course and Treatment Imaging Results: CT brain: IMPRESSION: Given the history of long-standing sinusitis and current imaging findings, there is high concern for a small epidural abscess suggesting intracranial extension of paranasal sinus disease above the cribriform plate. This is called a Pott's puffy tumor. MRI brain with and without contrast will be needed to further evaluate. MRI Brain: IMPRESSION: Severe paranasal sinus disease. No intracranial disease. Consults: ENT Operations: None Procedures: None Summary of Care Provided: Per HPI: The patient is a 33 year old F with history of chronic sinusitis who was apparently been diagnosed with acute sinusitis for which she has received treatment for the past 4 weeks without much improvement. Patient woke up on the morning of her admission with excruciating headache. In view of the extreme nature of her headache she presented to the emergency department. Initial head CT obtained in the ED was questionable for small epidural abscess suggesting intracranial extension of paranasal sinus disease above the cribriform plate. Subsequent imaging studies with an MRI however did not demonstrate any presence of epidural abscess but instead is severe case of paranasal sinus disease. The ENT surgeon onboarding specialist Dr. Ant Saleh was notified in addition to Dr. Garnett with neurology. Patient was started on broad-spectrum antibiotics therapy and admitted to regular nursing floor for further management Hospital Course: 1. Acute on chronic bilateral [id number]-old female with a history of multiple upper respiratory infections and sinus infections, as do her children, unfortunately she is adopted and she has no medical records of either of her biological parents. She states that she is never seen an ENT as an outpatient or had an immunology work-up given her chronic upper respiratory infections. She was initially on Omnicef as an outpatient however it appears to be of dosed daily instead of twice daily. She is on Unasyn here and has had a fever or white count. Unfortunately she is allergic to Augmentin because of significant diarrhea and abdominal cramping, therefore she will be discharged on Omnicef 300 mg twice daily for 3 weeks as well as nasal irrigations and Flonase. She is also to continue her Singulair as an outpatient. She is having facial pain, that has not been helped with narcotics and she says that Advil does not help either. Will try her on prednisone for 7 days since she will also be on antibiotics. Given the significance of her opacification on CT scan of her ethmoid sinuses bilaterally as well as maxillary sinuses, she will need to follow-up with ENT in 1 to 2 weeks and will likely need surgical intervention given the chronicity of her symptoms. She also need immunological work-up with outpatient antibody studies. I did discuss this plan with her and while she is having pain she is wanting to go home. 2. Her other medical diagnoses were evaluated in her home medications were continued where appropriate Patient Problems: Active and Suspected Problems (Last Reviewed 01/12/19 @ 13:52 by Kevan Johnson MD) Sinusitis (Acute) Narcolepsy (Acute) Depression (Acute) BMI 50.0-59.9, adult (Acute) - Physical Exam General: Alert, Oriented x3, Cooperative, No apparent distress HEENT: Atraumatic, PERRLA, EOMI, Normocephalic Oral: Moist Mucosa Neck: Supple, No JVD Lungs: Clear to auscultation, Normal air movement, No rhonchi, No wheeze, No rales Cardiovascular: Regular rate, Regular Rhythm, Normal S1, Normal S2, No murmurs Abdomen: Soft, Non Tender, Non-Distended, No Hepato-splenomegaly Extremities: No edema, Capillary Refill Less than 3 Seconds Skin: No rashes, No breakdown Neurological: Neuro grossly intact, Sensory exam intact to light touch and pain Psych/Mental Status: Normal Affect, Appropriate Vital Signs Temp Pulse Resp BP Pulse Ox 97.9 F 69 18 142/96 H 98 01/13/19 03:34 01/13/19 03:34 01/13/19 03:34 01/13/19 03:34 01/13/19 07:30 Oxygen Delivery Method Room Air Weight: 263 lb 7.238 oz Body Mass Index (BMI) 52.0 Intake and Output for Last 24 Hours 01/11/19 01/12/19 01/13/19 23:59 23:59 23:59 Intake Total 273 / 273 2563 / 2563 Balance 273 / 273 2563 / 2563 Laboratory Tests Past 24 Hrs 01/13/19 01/13/19 06:00 06:00 WBC 9.5 RBC 3.83 L Hgb 9.5 L Hct 31.3 L MCV 81.7 MCH 24.8 L MCHC 30.4 L RDW 15.1 H RDW Differential 44.0 H Plt Count 350 MPV 9.9 Immature Gran % (Auto) 0.400 Neut % (Auto) 63.4 Lymph % (Auto) 26.1 [place] % (Auto) 6.5 Eos % (Auto) 3.3 Baso % (Auto) 0.3 Absolute Neuts (auto) 6.0 Absolute Lymphs (auto) 2.47 Total Counted Not Reportable Sodium 136 Potassium 4.6 Chloride 107 Carbon Dioxide 24.0 Anion Gap 5 BUN 10 Creatinine 0.64 Estim Creat Clear Calc 230.44 Est GFR (MDRD) Af Amer 136 Est GFR (MDRD) Non-Af 112 BUN/Creatinine Ratio 15.5 Glucose 108 H Calcium 8.2 L Magnesium 1.9 Discharge Activity: Return to Normal Activity Call your doctor if you observe: Fever of 101 or Higher, Shortness of breath, Dizziness, Fainting spells, Chest pain, Increased palpitations (irregular heartbeat) Home Medications: Medications to take at Discharge Montelukast [Singulair] 10 mg PO DAILY 07/06/18 Fluticasone Propionate 50 mcg INHALATION DAILY 01/12/19 Methylphenidate HCl [Ritalin] 20 mg PO DAILY 01/12/19 Sertraline HCl [Zoloft] 100 mg PO DAILY 01/12/19 Cefdinir 300 mg PO BID #42 capsule 01/13/19 Prednisone [Deltasone] 40 mg PO DAILY #14 tablet 01/13/19 Following Prescrptions Were Given to Patient: Prednisone [Deltasone] 40 mg PO DAILY #14 tablet Cefdinir 300 mg PO BID #42 capsule Primary Care Physician: Jose Manuel Briseno DO [Primary Care Provider] - Please follow up with your Primary Care Physician in: 3-5 days Please Follow Up With: Ant Saleh MD When: 1-2 weeks Disposition: Home Minutes spent on discharge:: 35 Patient Condition:: Stable Medical Necessity - Tobacco Use Smoking Status: Never smoker Meaningful Use Info Meaningful Use Diagnoses (Choose all that apply): None applicable Code Visit OBSV E&M: 48321 Observation care discharge
[2019-01-13 10:11] VITALS: BP 136/95; PULSE 77; RESP 16; TEMP 36.8; O2SAT 98
== END 2019-01-13 10:19 | disposition home or self-care (01) ==
LOC: ED 07:48 → MS3 01-13 06:54
PROVIDERS: Admitting Provider Internal Medicine; Emergency Provider Emergency Medicine; Family Provider Family Medicine; PCP Family Medicine; Referring Provider Internal Medicine; Visit Provider Family Medicine
DX: J01.40 Acute pansinusitis, unspecified (principal); G47.419 Narcolepsy without cataplexy; F32.9 Major depressive disorder, single episode, unspecified; E66.01 Morbid (severe) obesity due to excess calories; Z68.43 Body mass index [BMI] 50.0-59.9, adult; Z71.3 Dietary counseling and surveillance; Z79.899 Other long term (current) drug therapy; Z79.51 Long term (current) use of inhaled steroids
CPT/HCPCS: 36415; 70450; 70553; 80048; 83735; 84703; 85025; 87040; 96361; 96365; 96366; 96367; 96375; 96376; 97802; 99218; 99284; A9575; J7030; J7040; A4216; G0378; J0295; J0696

== ENCOUNTER 2019-01-14 11:33 | Day surgery (SDC) | payer MEDICAID, SELFPAY ==
[2019-01-12 14:53] VITALS: BMI 52.0
[2019-01-14] VITALS (7 sets, daily range): BP systolic 121–163; BP diastolic 68–92; PULSE 58–70; RESP 16; TEMP 36.1–36.9; O2SAT 94–100; BMI 50.5
--- NOTE | 2019-01-14 11:31 | CT_ITS ---
STUDY: CT MAXILLOFACIAL SINUSES REASON FOR EXAM: Female, 33 years old. Presurgical planning RADIATION DOSAGE (If Supplied By Facility): CTDIvol = ( 33.06 ) mGy, DLP = ( 771.87 ) mGycm TECHNIQUE: The patient was scanned in a multi detector CT scanner. High resolution axial imaging was performed without the administration of intravenous contrast material. Sagittal and coronal images were reconstructed. Individualized dose optimization techniques were used for this CT. COMPARISON: None. FINDINGS: FRONTAL SINUSES: Extensive paranasal sinus disease within the left frontal sinus. ETHMOIDAL SINUSES: Moderate to severe diffuse paranasal sinus disease involving the ethmoid paranasal sinuses. MAXILLARY SINUSES: Near complete opacification of the bilateral maxillary sinuses SPHENOIDAL SINUSES: Near complete opacification of the bilateral sphenoid paranasal sinuses There is opacification of the bilateral maxillary infundibuli with normal uncinate processes, ethmoid bullae, and hiatus semilunaris. Normal bilateral middle turbinates. Normal bilateral inferior turbinates. Normal midline nasal septum. There is patency of the bilateral nasal airways. The visualized osseous structures are normal. The visualized bilateral orbital contents are normal. CT/Sinus/Facial Bone IMPRESSION: Extensive paranasal sinus disease as detailed above. Electronically Signed: Justus Dickerson DO at 12:17 EDT Tel , Service support ,
--- NOTE | 2019-01-14 13:00 | ETH_PTH ---
PATIENT: LEOPOLDODECEMBER KAYLA LOC: [facility] [place] U#:[id number] AGE/SX: 33/F ROOM: RE01/14/[address]: Dr. Lawrence Luong MD : 1985 BED: DIS: 01/14/2019 SPEC #: [id number] RECD: 01/15/19 08:07 STATUS: TING REBryson #: [id number] DARWIN: 01/14/19 13:[address]: Lawrence Luong DEPT: SURGICAL PATHOLOGY RECD BY: Lenny Jason ENTERED: 01/15/19 10:58 SP TYPE: ETH TISS OTHR DR: Dr. Jose Manuel Briseno DO Tissues: A - Ethmoid sinus, NOS B - Ethmoid sinus, NOS Procedures: Surgery Specimen Level III HEADER OPERATION: Functional endoscopic sinus surgery, endoscopy with removal PRE-OP DIAGNOSIS: Chronic maxillary sinusitis; chronic ethmoidal sinusitis; chronic sphenoidal sinusitis TISSUE SUBMITTED: A - Left sinus contents, B - Right sinus contents MICROSCOPIC DIAGNOSIS A. Left sinus contents, excision: Consistent with chronic sinusitis. Minute fragments of bone with no pathologic change. B. Right sinus contents, excision: Consistent with chronic sinusitis. Minute fragments of bone with no pathologic change. AM:clarke 01/16/19 MICROSCOPIC DESCRIPTION Slides are reviewed. GROSS DESCRIPTION A - Received in fixative is one container labeled with the patient's name and designated left sinus contents. The specimen consists of multiple irregular fragments of light to dark cantu soft tissue that in aggregate measure 5 x 5 x 1 cm. Reference Archivist portions are submitted in one cassette. B - Received in fixative is one container labeled with the patient's name and designated right sinus contents. The specimen consists of multiple irregular fragments of light to dark cantu soft tissue that in aggregate measure 3.5 x 3 x 1 cm. Reference Archivist portions are submitted in one cassette. / AM:clarke 01/15/19 TC:3 CPT: 23857 x2
[2019-01-14] MEDS: Lidocaine 4% 50 ML Bottle (14:00)
[2019-01-14] MEDS: Oxymetazoline 0.05% 1 SPRAY SPRAY.BTL 15 SPRAY (14:00)
--- NOTE | 2019-01-14 15:30 | PCM.OPRPT ---
Problem List (1) Chronic maxillary sinusitis Status: Chronic (2) Chronic ethmoidal sinusitis Status: Chronic (3) Chronic sphenoidal sinusitis Status: Chronic Report of Operation Date of Procedure: 01/14/19 Pre-Operative Diagnosis: Chronic howard-sinusitis Post-Operative Diagnosis: same Surgery/Procedure Performed:: Bilateral maxillary antrostomied, total ethmoidectomies, sphenoidotomies Description of Surgical Findings:: Fay is a 33-year-old female presents for evaluation of chronic sinusitis causing her intractable severe headaches, nasal congestion, and recent hospitalization with evaluation for possible intracranial abscess development. Examination showed findings consistent with acute on chronic sinusitis with imaging confirming near complete opacification of her maxillary sphenoid sinuses and chronic ethmoid and frontal sinus involvement. She had failed to show any significant improvement despite oral and intravenous antibiotic therapy surgical intervention with culture for directed antibiotic therapy was offered and she was eager to proceed. The risks, alternatives, potential complications, and benefits were discussed at length and any questions answered to the patient and/or caregiver's satisfaction. Witnessed informed consent was obtained in the office, and the patient and/or caregiver was agreeable to proceed. Procedure went as follows: The patient was identified in the preoperative holding and brought to the operating room, was placed under general anesthesia and intubated. When appropriate anesthesia was obtained, the navigational head gear was placed and confirmed to be operational in accordance with the pattern chain maker supervisor's directions. Pledgets soaked in a 50-50 mixture of oxymetazoline and 4% topical lidocaine were placed to decongest the nasal mucosa. These were then removed and beginning on the left side using a 0? endoscope the nasal cavity examined. The insertion of the middle turbinate and uncinate process was then injected with 1% lidocaine with 100,000 epinephrine for a total of 2 mL, and a similar injection was then carried on the contralateral side. Upon returning to the left side, the middle turbinate was medialized with a [place] elevator. This allowed examination of the maxillary sinus ostia which was then probed with a double ball seeker. The uncinate process was then outfractured with a J curette and transected with a backbiting forceps. This was then removed with the microdebrider creating a wide maxillary antrostomy. There is noted to be market edema and inflammatory change within the maxillary sinus with pockets of purulent material. The ethmoid bulla was then entered and a total ethmoidectomy was then carried out working posteriorly to anterior. Any polyps, scar, and mucous secretions were removed. The sphenoid sinus ostium was then identified and opened widely with any polyps, secretions, or other debris removed. A portion of the inflammatory material was sent for culture.The frontal sinus ostia was then evaluated and found to be patent. Pledgets soaked in oxymetazoline were then placed for hemostasis and attention turned to the contralateral side. Similar procedure and findings were then carried out. Floseal hemostatic agent was then applied. An NG tube was then placed to decompress the stomach and the patient returned to anesthesia, revived and extubated having tolerated the procedure well. Type of Anesthesia:: General Anesthesiologist: Wei Mas Special Medications: none Specimen's removed: bilateral sinus contents Drains: none Estimated Blood Loss (mL): 200 mL Fluids Replaced: 1000 mL Grafts/Implants Used: none - Complications none - Admit VTE Documentation VTE Present on Admission: No VTE Mechan Device Prophylaxis: SCD's VTE Pharm Prophylaxis ordered?: No
--- NOTE | 2019-01-14 15:38 | DCINST_ITS ---
- Discharge Diagnoses Current Active Problems: Current Active and Chronic Problems (Last Reviewed 01/12/19 @ 13:52 by Kevan Johnson MD) Chronic maxillary sinusitis (Chronic) Chronic ethmoidal sinusitis (Chronic) Chronic sphenoidal sinusitis (Chronic) You will use the following diet at home:: Regular Discharge Activity: Return to Normal Activity, May not drive while taking narcotic pain medications. Call your doctor if your incision/area has: Sudden Increased Bleeding Call your doctor if you observe: Fever of 101 or Higher, Uncontrolled pain Allergies/Adverse Reactions: Allergies kiwi Allergy (Verified 01/14/19 12:11) Anaphylaxis amoxicillin [From Augmentin] Adverse Reaction (Verified 01/14/19 12:11) Diarrhea clavulanic acid [From Augmentin] Adverse Reaction (Verified 01/14/19 12:11) Diarrhea formaldehyde Adverse Reaction (Verified 01/14/19 12:11) Rash gluten Adverse Reaction (Verified 01/14/19 12:11) Other latex Adverse Reaction (Verified 01/14/19 12:11) Rash cardboard Adverse Reaction (Uncoded 01/14/19 12:11) Rash Medications to take at Discharge RX: Montelukast [Singulair] 10 mg PO DAILY 07/06/18 RX: Fluticasone Propionate 50 mcg INHALATION DAILY 01/12/19 RX: Methylphenidate HCl [Ritalin] 20 mg PO DAILY 01/12/19 RX: Sertraline HCl [Zoloft] 100 mg PO DAILY 01/12/19 RX: Cefdinir 300 mg PO BID #42 capsule 01/13/19 RX: Prednisone [Deltasone] 40 mg PO DAILY #14 tablet 01/13/19 Primary Care Physician: Jose Manuel Briseno DO [Primary Care Provider] - Test Results: Test results from this visit will be discussed in further detail at your follow- up appointment, if applicable. Please Follow Up With: Lawrence Luong MD When: 10 days
[2019-01-14] MEDS: HYDROcodone Bitartrate/Apap 5/325 Tablet PO (17:19)
== END 2019-01-14 18:19 | disposition home or self-care (01) ==
LOC: SDC 11:34 → AC 11:37
PROVIDERS: Family Provider Family Medicine; PCP Family Medicine; Referring Provider Otolaryngology; Visit Provider Otolaryngology
PROC: (CPT 31257; principal; 2019-01-14 12:30)
DX: J32.4 Chronic pansinusitis (principal); F41.9 Anxiety disorder, unspecified; F32.9 Major depressive disorder, single episode, unspecified; M06.9 Rheumatoid arthritis, unspecified; Z79.899 Other long term (current) drug therapy; G47.30 Sleep apnea, unspecified; K58.9 Irritable bowel syndrome, unspecified; Z79.52 Long term (current) use of systemic steroids
CPT/HCPCS: 31257; 31267; 70486; 87070; 87075; 87102; 87176; 87205; 87206; 88304; 88305; J7120; J2405

== ENCOUNTER → 2020-03-02 | Outpatient (CLI) | payer MEDICAID, SELFPAY ==
[2019-01-14 12:13] VITALS: BMI 50.5
== END | disposition home or self-care (01) ==
LOC: LABSPEC 13:40
PROVIDERS: PCP Family Medicine; Visit Provider Obstetrics & Gynecology
DX: N39.0 Urinary tract infection, site not specified (principal)
CPT/HCPCS: 87086; 87088

== ENCOUNTER → 2023-08-09 | Outpatient (CLI) | payer MEDICAID, SELFPAY ==
[2023-08-09 18:38] LABS: Hepatitis B Surface Antibody Reactive; Hepatitis B Surface Antigen Non-Reactive (Nonreactive); Hepatitis C Antibody Non-Reactive (Nonreactive)
[2023-08-11 16:08] LABS: Hepatitis A IgM Antibody Negative (Negative); Hepatitis B Core Ab Total Negative (Negative); QNTFERON TB Mitogen Value > 10.00 IU/mL (.); QNTFERON TB Nil Value 0.02 IU/mL (.); QNTFERON TB1+ Ag Value 0.01 IU/mL (.); QNTFERON TB2+ Ag Value 0 IU/mL (.); QNTIFERON TB Positive Criteria Negative (Negative)
== END | disposition home or self-care (01) ==
LOC: MTLAB 15:37
PROVIDERS: PCP Family Medicine; Referring Provider Physician Assistant; Visit Provider Physician Assistant
DX: L40.0 Psoriasis vulgaris (principal); L40.59 Other psoriatic arthropathy; L30.9 Dermatitis, unspecified; L60.9 Nail disorder, unspecified; Z79.620 Long term (current) use of immunosuppressive biologic
CPT/HCPCS: 36415; 86480; 86704; 86706; 86709; 86803; 87340